=== PATIENT | male | born 1955 | race Caucasian/White ===

== ENCOUNTER 2019-01-23 11:14 | Emergency (ER) | payer BC ==
[2019-01-23] MEDS ORDERED: Sodium Chloride 0.9% 10 ML Syringe FLUSH PRN ×2 (11:23→11:59)
--- NOTE | 2019-01-23 11:35 | EDM.PDOC ---
ED HPI GENERAL MEDICAL PROBLEM - General Stated Complaint: POSSIBLE STROKE Time Seen by Provider: 01/23/19 11:14 Source of Information: Reports: Patient, EMS History Limitations: Reports: No Limitations - History of Present Illness INITIAL COMMENTS - FREE TEXT/NARRATIVE: 63-year-old male who reports that at approximately 9:30 AM today he was sitting and watching TV and he developed right hand and arm weakness. His significant other also noticed that he had garbled speech and the patient does report that he felt it was difficult for him to talk. He reports that the symptoms lasted for about an hour and then they seemed to improve and he felt that they went away. EMS which was a basic unit arrived and they did to FAST screens and they reported to me that they were negative. The patient has had an elevated blood pressure en route but he has been awake, alert and responsive according to EMS. The patient denies any headache. He had no antecedent symptoms. No chest pain. No shortness of breath. Nausea or vomiting. He does admit to drinking beer today ("it's my day off"). He denies any pain at present. He rates his pain as a 0/10. The patient was evaluated and found to have some right sided weakness and right facial droop with slurred speech and was sent directly to CT scan at this point. There are no other associated signs or symptoms. There are no other modifying factors. Onset: Today (9:30 AM) Duration: Improving Location: Reports: Other (No pain. 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 (see below) (Nothing) - Related Data Allergies Allergy/AdvReac Type Severity Reaction Status Date / Time No Known Allergies Allergy Verified 01/23/19 11:42 Home Meds: Home Meds NK [No Known Home Meds] 01/23/19 [History] Past Medical History Cardiovascular History: Reports: Hypertension (But he takes no medications because "I can't afford it".) - Past Surgical History GI Surgical History: Reports: Colonoscopy, Hernia, Inguinal (Right) Musculoskeletal Surgical History: Reports: ORIF (Right elbow) Social & Family History - Tobacco Use Smoking Status *Q: Current Every Day Smoker - Alcohol Use Alcohol Use History: Yes Alcohol Use Frequency: Weekly (Has been drinking alcohol this morning.) - Living Situation & Occupation 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) ED ROS GENERAL - Review of Systems Review Of Systems: See Below Constitutional: Reports: No Symptoms HEENT: Reports: No Symptoms Respiratory: Reports: Cough (Chronic cough) Cardiovascular: Reports: No Symptoms GI/Abdominal: Reports: No Symptoms : Reports: No Symptoms Musculoskeletal: Reports: No Symptoms Skin: Reports: No Symptoms Neurological: Reports: Weakness (Right upper extremity weakness), Change in Speech Hematologic/Lymphatic: Reports: No Symptoms Immunologic: Reports: No Symptoms ED EXAM, NEURO - Physical Exam Exam: See Below Exam Limited By: No Limitations General Appearance: Alert, WD/WN, No Apparent Distress Eye Exam: Bilateral Eye: EOMI, Normal Inspection, PERRL Ears: Normal External Exam, Hearing Loss (Chronic) Nose: Normal Inspection, Normal Mucosa, No Blood Throat/Mouth: Normal Voice, No Airway Compromise, Other (Order of alcohol on his breath) Head Exam: Atraumatic, Normocephalic, Other (He does have a right facial droop) Respiratory/Chest: No Respiratory Distress, Lungs Clear, Normal Breath Sounds, No Accessory Muscle Use, Chest Non-Tender Cardiovascular: Normal Peripheral Pulses, Regular Rate, Rhythm, No JVD, No Murmur GI/Abdominal: Normal Bowel Sounds, Soft, Non-Tender, No Mass Neurological: Alert, Normal Dorsiflexion, Normal Plantar Flexion, Oriented x 3, Other (Right pronator drift. 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 Right facial droop. Normal strength in right lower extremity. Decreased tongue protrusion to the right versus left.) Extremities: Normal Inspection, Normal Range of Motion, Non-Tender, No Pedal Edema, Normal Capillary Refill Skin Exam: Warm, Dry, Intact, Normal Color, No Rash EKG INTERPRETATION EKG Date: 01/23/19 Time: 11:52 Rhythm: NSR Rate (Beats/Min): 94 [place]: LAD-Left [place] Deviation P-Wave: Present QRS: Normal ST-T: Other (Prominent T waves) QT: Normal Comparison: NA - No Prior EKG EKG Interpretation Comments: Normal sinus rhythm with LVH and prominent T waves. There is no acute injury pattern seen. Course - Vital Signs Last Recorded V/S: Last Vital Signs Temp Pulse 94 01/23/19 11:20 Resp 20 01/23/19 11:20 BP Pulse Ox 94 L 01/23/19 11:20 - Orders/Labs/Meds Orders: Active Orders 24 hr Category Date Time Status Blood Glucose Check, Bedside [RC] ONETIME Care 01/23/19 11:39 Active EKG Documentation Completion [RC] ASDIRECTED Care 01/23/19 11:25 Active Chest 1V Frontal [CR] Stat Exams 01/23/19 11:23 Taken Head wo Cont [CT] Stat Exams 01/23/19 11:23 Taken Peripheral IV Insertion Adult [OM.PC] Routine Oth 01/23/19 11:23 Ordered Peripheral IV Insertion Adult [OM.PC] Routine Oth 01/23/19 11:59 Ordered EKG 12 Lead [EK] Routine Ther 01/23/19 11:23 Ordered Labs: Laboratory Tests 01/23/19 01/23/19 01/23/19 Range/Units 11:20 11:20 11:20 WBC 7.7 (4.5-12.0) X10-3/uL RBC 3.92 L (4.30-5.75) x10(6)uL Hgb 12.9 L (13.5-17.8) g/dL Hct 36.2 (30.0-51.3) % MCV 92.3 (80-96) fL MCH 32.9 (27.7-33.6) pg MCHC 35.6 H (32.2-35.4) g/dL RDW 12.3 (11.5-15.5) % Plt Count 142 (125-369) X10(3)uL MPV 7.5 (7.4-10.4) fL Add Manual Diff Yes Neutrophils % (Manual) 84 H (46-82) % Lymphocytes % (Manual) 8 L (13-37) % Monocytes % (Manual) 8 (4-12) % PT 9.9 (8.7-11.1) INR 1.02 (0.89-1.13) APTT 29.2 (24.4-33.2) SECONDS Sodium 127 L (135-145) mmol/L Potassium 2.9 L (3.5-5.3) mmol/L Chloride 90 L (100-110) mmol/L Carbon Dioxide 24 (21-32) mmol/L BUN 7 (7-18) mg/dL Creatinine 0.6 L (0.70-1.30) mg/dL Est Cr Clr Drug Dosing TNP Estimated GFR (MDRD) > 60 (>60) BUN/Creatinine Ratio 11.7 (9-20) Glucose 126 H (80-116) mg/dL Calcium 8.3 L (8.6-10.2) mg/dL Total Bilirubin 0.5 (0.1-1.3) mg/dL AST 39 H (5-25) IU/L ALT 66 H (12-36) U/L Alkaline Phosphatase 111 (56-112) IU/L Total Protein 6.8 (6.0-8.0) g/dL Albumin 3.0 L (3.2-4.6) g/dL Globulin 3.8 g/dL Albumin/Globulin Ratio 0.8 Ethyl Alcohol (<0.03) % 01/23/ Range/Units 11:20 WBC (4.5-12.0) X10-3/uL RBC (4.30-5.75) x10(6)uL Hgb (13.5-17.8) g/dL Hct (30.0-51.3) % MCV (80-96) fL MCH (27.7-33.6) pg MCHC (32.2-35.4) g/dL RDW (11.5-15.5) % Plt Count (125-369) X10(3)uL MPV (7.4-10.4) fL Add Manual Diff Neutrophils % (Manual) (46-82) % Lymphocytes % (Manual) (13-37) % Monocytes % (Manual) (4-12) % PT (8.7-11.1) INR (0.89-1.13) APTT (24.4-33.2) SECONDS Sodium (135-145) mmol/L Potassium (3.5-5.3) mmol/L Chloride (100-110) mmol/L Carbon Dioxide (21-32) mmol/L BUN (7-18) mg/dL Creatinine (0.70-1.30) mg/dL Est Cr Clr Drug Dosing Estimated GFR (MDRD) (>60) BUN/Creatinine Ratio (9-20) Glucose (80-116) mg/dL Calcium (8.6-10.2) mg/dL Total Bilirubin (0.1-1.3) mg/dL AST (5-25) IU/L ALT (12-36) U/L Alkaline Phosphatase (56-112) IU/L Total Protein (6.0-8.0) g/dL Albumin (3.2-4.6) g/dL Globulin g/dL Albumin/Globulin Ratio Ethyl Alcohol 0.05 H (<0.03) % Meds: Medications Discontinued Medications Generic Name Dose Route Start Last Admin Trade Name Freq PRN Reason Stop Dose Admin Alteplase, Recombinant 8.6 mg 01/23/19 12:09 01/23/19 12:16 Activase IV 01/23/19 12:10 8.6 mg .BOLUS ONE Administration Alteplase, Recombinant 77.4 mg 01/23/19 12:09 01/23/19 12:21 Activase IV 01/23/19 12:10 77.4 mg .INFUSION ONE Administration Potassium Chloride 10 meq/ 100 mls @ 100 mls/hr 01/23/19 11:58 01/23/19 12:07 Premix IV 01/23/19 12:57 100 mls/hr ONETIME ONE Administration Sodium Chloride 1,000 mls @ 100 mls/hr 01/23/19 12:00 01/23/19 12:12 Normal Saline IV 100 mls/hr ASDIRECTED NAOMI Administration Sodium Chloride 10 ml 01/23/19 11:23 01/23/19 12:00 Saline Flush FLUSH 10 ml ASDIRECTED PRN Administration Keep Vein Open Sodium Chloride 10 ml 01/23/19 11:59 01/23/19 11:35 Saline Flush FLUSH 10 ml ASDIRECTED PRN Administration Keep Vein Open - Re-Assessments/Exams Free Text/Narrative Re-Assessment/Exam: 01/23/19 11:49: Patient with some right-sided weakness, pronator drift, right sided facial droop, dysarthria and dysphasia and with NIH stroke scale score of 6. The CT scan of his head shows no definite bleed per my read. EKG shows sinus rhythm with a left axis and no evidence of an acute DE. The patient appears to be having an acute ischemic stroke and I will call and discuss the patient's case with the stroke neurologist at [facility] in [place]. 01/23/19 12:00: I discussed the patient's case with Dr. Dash, stroke neurologist at [facility] in [place], and he feels the patient is a candidate for TPA and does recommend TPA therapy for this gentleman. He would also recommend transfer the patient to [facility] in [place] owing this. The official report of the CT scan shows no bleeding per [facility] radiologist. I will discuss the risk and benefits of TPA therapy with the patient. I also discussed the patient's case with Dr. Trotter, ED physician at [facility] in [place], and he has agreed to accept the patient in transfer. 01/23/19 12:05: I discussed the risk and benefits of TPA therapy for stroke with the patient and his significant other. The patient, following this, requests that I proceed with TPA therapy for his stroke. The patient's potassium was also somewhat decreased at 2.9. He will be given a 10 mEq potassium rider IV as well. We will proceed with TPA therapy and then the patient will be transferred via ambulance to [facility] in [place]. 01/23/19 12:25: EMS has been called. The patient remains neurologically stable. TPA is infusing. Potassium chloride is infusing. We will continue close monitoring. Departure - Departure Time of Disposition: 12:51 Disposition: DC/Tfer to Acute Hospital 02 Condition: Critical Clinical Impression: Acute ischemic stroke, Hypokalemia, Hyponatremia - Discharge Information Referrals: PCP,Unknown [Primary Care Provider] - Forms: ED Department Discharge Critical Care Note - Critical Care Note Total Time (mins): 85 Comments: Total critical care time spent with the patient was 85 minutes. - My Orders Last 24 Hours: My Active Orders 01/23/19 11:23 Chest 1V Frontal [CR] Stat Head wo Cont [CT] Stat Peripheral IV Insertion Adult [OM.PC] Routine EKG 12 Lead [EK] Routine 01/23/19 11:25 EKG Documentation Completion [RC] ASDIRECTED 01/23/19 11:39 Blood Glucose Check, Bedside [RC] ONETIME 01/23/19 11:59 Peripheral IV Insertion Adult [OM.PC] Routine - Assessment/Plan Last 24 Hours: My Active Orders 01/23/19 11:23 Chest 1V Frontal [CR] Stat Head wo Cont [CT] Stat Peripheral IV Insertion Adult [OM.PC] Routine EKG 12 Lead [EK] Routine 01/23/19 11:25 EKG Documentation Completion [RC] ASDIRECTED 01/23/19 11:39 Blood Glucose Check, Bedside [RC] ONETIME 01/23/19 11:59 Peripheral IV Insertion Adult [OM.PC] Routine
[2019-01-23] MEDS ORDERED: Potassium Chloride 10 MEQ in Premix Bag 1 BAG IV ONE (11:58)
[2019-01-23] MEDS ORDERED: Sodium Chloride 0.9% 1,000 ML IV SCH (12:00)
== END 2019-01-23 12:51 ==
LOC: FB.ED 11:14
DX: I63.9 Cerebral infarction, unspecified (principal); E87.6 Hypokalemia; E87.1 Hypo-osmolality and hyponatremia; I10 Essential (primary) hypertension
CPT/HCPCS: 36415; 70450; 71045; 80053; 80320; 82962; 85025; 85610; 85730; 93005; 96365; 96368; 96376; 99285; J2997; J3480; J7030; G0480

== ENCOUNTER 2020-10-17 06:44 | Inpatient (IN) | payer MEDICARE, MEDICAID ==
--- NOTE | 2020-10-17 07:33 | EDM.PDOC ---
ED HPI GENERAL MEDICAL PROBLEM - General Chief Complaint: General Stated Complaint: fall/weakness Time Seen by Provider: 10/17/20 07:00 Source of Information: Reports: Patient, Family History Limitations: Reports: No Limitations - History of Present Illness INITIAL COMMENTS - FREE TEXT/NARRATIVE: Patient presented to the ED because of frequent falls and weakness. He started falling 2 weeks ago, the most recent one was 4 days ago. He said his legs just gave out due to his previous stroke and fell on his right side. He has abrasions on the right elbow and complains of right hip pain from the fall this Saturday. He also has a dry cough denies having any dyspnea,fever,chills. There is no N/V/D. He drinks 6 packs of beer daily. DENIES ANY PAIN WHEN ASKED AT PRESENT TIME. Pain Score (Numeric/FACES): 0 - Related Data Allergies Allergy/AdvReac Type Severity Reaction Status Date / Time No Known Allergies Allergy Verified 10/17/20 13:04 Home Meds: Home Meds Cholecalciferol (Vitamin D3) [Vitamin D3] 100 mcg PO DAILY 10/17/20 [History] Cyanocobalamin (Vitamin B12) [Vitamin B12] 1,000 mcg PO DAILY 10/17/20 [History] Folic Acid 1 mg PO DAILY 10/17/20 [History] Losartan [Cozaar] 100 mg PO DAILY 10/17/20 [History] Multivit-Min/FA/Lycopen/Lutein [Centrum Silver Tablet] 1 tab PO DAILY 10/17/20 [History] Sertraline [Zoloft] 100 mg PO DAILY 10/17/20 [History] Triamcinolone Acetonide [Triamcinolone Acetonide 0.1% Crm] 1 applic TOP TID 10/17/20 [History] buPROPion [buPROPion XL] 150 mg PO DAILY 10/17/20 [History] carvediloL [Carvedilol] 12.5 mg PO BID 10/17/20 [History] hydroCHLOROthiazide [Hydrochlorothiazide] 12.5 mg PO DAILY 10/17/20 [History] Past Medical History - Past Health History Medical/Surgical History: Denies Medical/Surgical History Cardiovascular History: Reports: Hypertension Other Cardiovascular History: Has not taken BP med in over 2 years d/t cost of med Genitourinary History: Reports: Urinary Incontinence Neurological History: Reports: CVA Other Neuro History: rt sided affected Psychiatric History: Reports: Depression - Past Surgical History Cardiovascular Surgical History: Reports: None GI Surgical History: Reports: Colonoscopy, Hernia, Inguinal Musculoskeletal Surgical History: Reports: ORIF Social & Family History - Family History Family Medical History: Unobtainable - Tobacco Use Tobacco Use Status *Q: Current Every Day Tobacco User Years of Tobacco use: 45 Packs/Tins Daily: 0.5 - Caffeine Use Caffeine Use: Reports: Soda - Alcohol Use Days Per Week of Alcohol Use: 7 Number of Drinks Per Day: 6 Total Drinks Per Week: 42 - Recreational Drug Use Recreational Drug Use: No - Living Situation & Occupation 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) ED ROS GENERAL - Review of Systems Review Of Systems: See Below Constitutional: Reports: Weakness HEENT: Reports: No Symptoms Respiratory: Reports: Cough Cardiovascular: Reports: No Symptoms Endocrine: Reports: No Symptoms GI/Abdominal: Reports: No Symptoms : Reports: Incontinence Musculoskeletal: Reports: No Symptoms Skin: Reports: Other (abrasions right elbow) Psychiatric: Reports: No Symptoms Hematologic/Lymphatic: Reports: No Symptoms ED EXAM, GENERAL - Physical Exam Exam: See Below Exam Limited By: No Limitations General Appearance: Alert, No Apparent Distress Eye Exam: Bilateral Eye: PERRL Ears: Normal External Exam, Normal Canal, Normal TMs Nose: Normal Inspection, Normal Mucosa, No Blood Throat/Mouth: Normal Inspection, Normal Lips, Normal Teeth Head: Atraumatic, Normocephalic Neck: Normal Inspection, Supple, Non-Tender, Full Range of Motion Respiratory/Chest: No Respiratory Distress, Lungs Clear, Normal Breath Sounds, No Accessory Muscle Use, Chest Non-Tender Cardiovascular: Normal Peripheral Pulses, Regular Rate, Rhythm, No Edema, No Gallop, No JVD, No Murmur GI/Abdominal: Normal Bowel Sounds, Soft, Non-Tender, No Organomegaly, No Distention, No Abnormal Bruit Back Exam: Normal Inspection, Full Range of Motion Extremities: Normal Inspection, Normal Range of Motion, Non-Tender, No Pedal Edema, Normal Capillary Refill Neurological: Alert, Oriented, CN II-XII Intact, Normal Cognition, Normal Reflexes, Other (Rt hemiparesis) Psychiatric: Normal Affect Skin Exam: Warm, Other (abrasion-RT elbow) #1 Interpretation EKG Date: 10/17/20 Time: 07:18 Rhythm: NSR Rate (Beats/Min): 71 [place]: Normal P-Wave: Present QRS: Normal ST-T: Normal QT: Normal [place]/PQ Interval: 232 Comparison: No Change EKG Interpretation Comments: NSR Anterior infarct-old Course - Vital Signs Text/Narrative:: Lab/EKG/Head CT,CXR,Pelvic Xray, Elbow Xray result was discussed with patient and his NS with 20 meq KCL @ 125 ml/hr Last Recorded V/S: Last Vital Signs Temp 37.3 C 10/17/20 11:23 Pulse 73 10/17/20 13:12 Resp 18 10/17/20 11:23 BP 169/94 H 10/17/20 13:12 Pulse Ox 93 L 10/17/20 11:23 - Orders/Labs/Meds Orders: Active Orders 24 hr Category Date Time Status Head wo Cont [CT] Stat Exams 10/17/20 07:01 Taken Sodium Chloride 0.9% [Saline Flush] Med 10/17/20 07:12 Active 10 ml FLUSH ASDIRECTED PRN Saline Lock Insert [OM.PC] Routine Oth 10/17/20 07:12 Ordered EKG 12 Lead [EK] Routine Ther 10/17/20 07:12 Stop Req Medication Orders Albuterol/Ipratropium (Albuterol/Ipratropium 3.0-0.5 Mg/3 Ml Neb Soln) 3 ml NEB Q2H PRN PRN Reason: Shortness of Breath Bupropion HCl (Bupropion 150 Mg Tab.Er) 150 mg PO DAILY NAOMI Last Admin: 10/17/20 13:12 Dose: 150 mg Documented by: MONIQUE Carvedilol (Carvedilol 12.5 Mg Tab) 12.5 mg PO BID NAOMI Last Admin: 10/17/20 13:12 Dose: 12.5 mg Documented by: MONIQUE Hydrochlorothiazide (Hydrochlorothiazide 12.5 Mg Cap) 12.5 mg PO DAILY NAOMI Potassium Chloride/Sodium Chloride (Normal Saline With 20 Meq Kcl) 1,000 mls @ 125 mls/hr IV Q8H NAOMI Last Admin: 10/17/20 12:00 Dose: 125 mls/hr Documented by: ANDEING Lorazepam (Lorazepam 2 Mg/Ml Sdv) 0 mg IV ASDIRECTED NAOMI; Protocol Lorazepam (Lorazepam 1 Mg Tab) 0 mg PO ASDIRECTED NAOMI; Protocol Losartan Potassium (Losartan 100 Mg Tab) 100 mg PO DAILY NAOMI Last Admin: 10/17/20 13:12 Dose: 100 mg Documented by: MONIQUE Multivitamins/Minerals (Multivitamins With Iron/Calcium/Folic Acid/Minerals Tab) 1 tab PO DAILY NAOMI Pantoprazole Sodium (Pantoprazole 40 Mg Tab.Cr) 40 mg PO 0600 NAOMI Sertraline HCl (Sertraline 100 Mg Tab) 100 mg PO DAILY NAOMI Last Admin: 10/17/20 13:12 Dose: 100 mg Documented by: MONIQUE Sodium Chloride (Sodium Chloride 0.9% 10 Ml Syringe) 10 ml FLUSH ASDIRECTED PRN PRN Reason: Keep Vein Open Labs: Laboratory Tests 10/17/20 10/17/20 10/17/20 Range/Units 07:00 07:10 07:10 WBC 8.0 (3.2-10.1) x10-3/uL RBC 3.98 (3.90-5.90) x10(6)uL Hgb 13.1 (12.9-17.7) g/dL Hct 37.8 L (38.3-50.1) % MCV 94.7 (80.8-98.7) fL MCH 32.9 (27.0-33.3) pg MCHC 34.7 (28.7-35.3) g/dL RDW 12.3 L (12.4-15.0) % Plt Count 229 (117-477) x10(3)uL MPV 8.3 (6.7-11.0) fL Neut % (Auto) 78.5 H (40.3-71.8) % Lymph % (Auto) 8.9 L (15.8-45.3) % [place] % (Auto) 11.9 (5.5-15.2) % Eos % (Auto) 0.5 (0.1-6.8) % Baso % (Auto) 0.2 L (0.3-3.8) % Neut # (Auto) 6.3 (1.7-6.9) x10-3/uL Lymph # (Auto) 0.7 (0.5-4.5) x10-3/uL [place] # (Auto) 1.0 (0.0-1.2) x10-3/uL Eos # (Auto) 0.0 (0.0-0.6) x10-3/uL Baso # (Auto) 0.0 (0.0-0.3) x10-3/uL Sodium 124 L (135-145) mmol/L Potassium 3.4 L (3.5-5.3) mmol/L Chloride 88 L* (100-110) mmol/L Carbon Dioxide 25 (21-32) mmol/L BUN 8 (7-18) mg/dL Creatinine 0.7 (0.70-1.30) mg/dL Est Cr Clr Drug Dosing TNP Estimated GFR (MDRD) > 60 (>60) BUN/Creatinine Ratio 11.4 (9-20) Glucose 128 H (80-116) mg/dL Calcium 8.9 (8.6-10.2) mg/dL Magnesium 1.8 (1.8-2.5) mg/dL Total Bilirubin 0.8 (0.1-1.3) mg/dL AST 19 D (5-25) IU/L ALT 29 D (12-36) U/L Alkaline Phosphatase 176 H (56-112) IU/L Creatine Kinase (60-160) IU/L Troponin I (4.0-60.3) pg/mL Total Protein 6.6 (6.0-8.0) g/dL Albumin 3.3 (3.2-4.6) g/dL Globulin 3.3 g/dL Albumin/Globulin Ratio 1.0 Ethyl Alcohol (<0.03) % SARS-CoV-2 RNA (TIMO) (NEGATIVE) 10/17/20 10/17/20 10/17/20 Range/Units 07:10 07:10 07:10 WBC (3.2-10.1) x10-3/uL RBC (3.90-5.90) x10(6)uL Hgb (12.9-17.7) g/dL Hct (38.3-50.1) % MCV (80.8-98.7) fL MCH (27.0-33.3) pg MCHC (28.7-35.3) g/dL RDW (12.4-15.0) % Plt Count (117-477) x10(3)uL MPV (6.7-11.0) fL Neut % (Auto) (40.3-71.8) % Lymph % (Auto) (15.8-45.3) % [place] % (Auto) (5.5-15.2) % Eos % (Auto) (0.1-6.8) % Baso % (Auto) (0.3-3.8) % Neut # (Auto) (1.7-6.9) x10-3/uL Lymph # (Auto) (0.5-4.5) x10-3/uL [place] # (Auto) (0.0-1.2) x10-3/uL Eos # (Auto) (0.0-0.6) x10-3/uL Baso # (Auto) (0.0-0.3) x10-3/uL Sodium (135-145) mmol/L Potassium (3.5-5.3) mmol/L Chloride (100-110) mmol/L Carbon Dioxide (21-32) mmol/L BUN (7-18) mg/dL Creatinine (0.70-1.30) mg/dL Est Cr Clr Drug Dosing Estimated GFR (MDRD) (>60) BUN/Creatinine Ratio (9-20) Glucose (80-116) mg/dL Calcium (8.6-10.2) mg/dL Magnesium (1.8-2.5) mg/dL Total Bilirubin (0.1-1.3) mg/dL AST (5-25) IU/L ALT (12-36) U/L Alkaline Phosphatase (56-112) IU/L Creatine Kinase 78 (60-160) IU/L Troponin I 11.0 (4.0-60.3) pg/mL Total Protein (6.0-8.0) g/dL Albumin (3.2-4.6) g/dL Globulin g/dL Albumin/Globulin Ratio Ethyl Alcohol < 0.03 (<0.03) % SARS-CoV-2 RNA (TIMO) (NEGATIVE) 10/17/20 Range/Units 09:50 WBC (3.2-10.1) x10-3/uL RBC (3.90-5.90) x10(6)uL Hgb (12.9-17.7) g/dL Hct (38.3-50.1) % MCV (80.8-98.7) fL MCH (27.0-33.3) pg MCHC (28.7-35.3) g/dL RDW (12.4-15.0) % Plt Count (117-477) x10(3)uL MPV (6.7-11.0) fL Neut % (Auto) (40.3-71.8) % Lymph % (Auto) (15.8-45.3) % [place] % (Auto) (5.5-15.2) % Eos % (Auto) (0.1-6.8) % Baso % (Auto) (0.3-3.8) % Neut # (Auto) (1.7-6.9) x10-3/uL Lymph # (Auto) (0.5-4.5) x10-3/uL [place] # (Auto) (0.0-1.2) x10-3/uL Eos # (Auto) (0.0-0.6) x10-3/uL Baso # (Auto) (0.0-0.3) x10-3/uL Sodium (135-145) mmol/L Potassium (3.5-5.3) mmol/L Chloride (100-110) mmol/L Carbon Dioxide (21-32) mmol/L BUN (7-18) mg/dL Creatinine (0.70-1.30) mg/dL Est Cr Clr Drug Dosing Estimated GFR (MDRD) (>60) BUN/Creatinine Ratio (9-20) Glucose (80-116) mg/dL Calcium (8.6-10.2) mg/dL Magnesium (1.8-2.5) mg/dL Total Bilirubin (0.1-1.3) mg/dL AST (5-25) IU/L ALT (12-36) U/L Alkaline Phosphatase (56-112) IU/L Creatine Kinase (60-160) IU/L Troponin I (4.0-60.3) pg/mL Total Protein (6.0-8.0) g/dL Albumin (3.2-4.6) g/dL Globulin g/dL Albumin/Globulin Ratio Ethyl Alcohol (<0.03) % SARS-CoV-2 RNA (TIMO) Negative (NEGATIVE) Meds: Medications Generic Name Dose Route Start Last Admin Trade Name Mauricio PRN Reason Stop Dose Admin Albuterol/Ipratropium 3 ml 10/17/20 12:12 Albuterol/Ipratropium 3.0-0.5 Mg/3 Ml Neb Soln NEB Q2H PRN Shortness of Breath Bupropion HCl 150 mg 10/17/20 11:15 10/17/20 13:12 Bupropion 150 Mg Tab.Er PO 150 mg DAILY NAOMI Administration Carvedilol 12.5 mg 10/17/20 11:15 10/17/20 13:12 Carvedilol 12.5 Mg Tab PO 12.5 mg BID NAOMI Administration Hydrochlorothiazide 12.5 mg 10/18/20 09:00 Hydrochlorothiazide 12.5 Mg Cap PO DAILY NAOMI Potassium Chloride/Sodium Chloride 1,000 mls @ 125 mls/hr 10/17/20 11:00 10/17/20 12:00 Normal Saline With 20 Meq Kcl IV 125 mls/hr Q8H NAOMI Administration Lorazepam 0 mg 10/17/20 11:45 Lorazepam 2 Mg/Ml Sdv IV ASDIRECTED NAOMI Protocol Lorazepam 0 mg 10/17/20 12:00 Lorazepam 1 Mg Tab PO ASDIRECTED NAOMI Protocol Losartan Potassium 100 mg 10/17/20 11:15 10/17/20 13:12 Losartan 100 Mg Tab PO 100 mg DAILY NAOMI Administration Multivitamins/Minerals 1 tab 10/18/20 09:00 Multivitamins With Iron/Calcium/Folic Acid/Minerals Tab PO DAILY NAOMI Pantoprazole Sodium 40 mg 10/18/20 06:00 Pantoprazole 40 Mg Tab.Cr PO 0600 NAOMI Sertraline HCl 100 mg 10/17/20 11:15 10/17/20 13:12 Sertraline 100 Mg Tab PO 100 mg DAILY NAOMI Administration Sodium Chloride 10 ml 10/17/20 07:12 Sodium Chloride 0.9% 10 Ml Syringe FLUSH ASDIRECTED PRN Keep Vein Open Discontinued Medications Generic Name Dose Route Start Last Admin Trade Name Mauricio PRN Reason Stop Dose Admin Potassium Chloride/Sodium Chloride 1,000 mls @ 125 mls/hr 10/17/20 10:00 10/17/20 09:58 Normal Saline With 20 Meq Kcl IV 125 mls/hr ASDIRECTED NAOMI Administration Lidocaine HCl 6 ml 10/17/20 11:14 10/17/20 11:36 Lidocaine 2% Hcl 6 Ml [email or web address] 10/17/20 11:15 6 ml ONETIME ONE Administration Departure - Departure Time of Disposition: 09:00 Disposition: Admitted As Inpatient 64 Condition: Good Clinical Impression: Weakness, Urine incontinence, Hypokalemia, Hyponatremia - Discharge Information Sepsis Event Note (ED) - Evaluation Sepsis Screening Result: No Definite Risk - Focused Exam Vital Signs: Vital Signs Temp Pulse Resp BP Pulse Ox 10/17/20 06:52 36.7 C 75 18 167/91 H 94 L - My Orders Last 24 Hours: My Active Orders 10/17/20 07:01 Head wo Cont [CT] Stat 10/17/20 07:12 Sodium Chloride 0.9% [Saline Flush] 10 ml FLUSH ASDIRECTED PRN Saline Lock Insert [OM.PC] Routine EKG 12 Lead [EK] Routine - Assessment/Plan Last 24 Hours: My Active Orders 10/17/20 07:01 Head wo Cont [CT] Stat 10/17/20 07:12 Sodium Chloride 0.9% [Saline Flush] 10 ml FLUSH ASDIRECTED PRN Saline Lock Insert [OM.PC] Routine EKG 12 Lead [EK] Routine
[2020-10-17] MEDS ORDERED: NS + KCl 20mEq/L 1,000 ML IV SCH (10:00)
--- NOTE | 2020-10-17 11:13 | PCM.HP.2 ---
H&P History of Present Illness - General Date of Service: 10/17/20 Admit Problem/Dx: Admission Diagnosis/Problem Admission Diagnosis/Problem Weakness Source of Information: Patient, Family, Old Records, Provider History Limitations: Reports: No Limitations - Related Data Allergies/Adverse Reactions: Allergies Allergy/AdvReac Type Severity Reaction Status Date / Time No Known Allergies Allergy Verified 10/17/20 07:39 Home Medications: Home Meds Cholecalciferol (Vitamin D3) [Vitamin D3] 100 mcg PO DAILY 10/17/20 [History] Cyanocobalamin (Vitamin B12) [Vitamin B12] 1,000 mcg PO DAILY 10/17/20 [History] Folic Acid 1 mg PO DAILY 10/17/20 [History] Losartan [Cozaar] 100 mg PO DAILY 10/17/20 [History] Multivit-Min/FA/Lycopen/Lutein [Centrum Silver Tablet] 1 tab PO DAILY 10/17/20 [History] Sertraline [Zoloft] 100 mg PO DAILY 10/17/20 [History] Triamcinolone Acetonide [Triamcinolone Acetonide 0.1% Crm] 1 applic TOP TID 10/17/20 [History] buPROPion [buPROPion XL] 150 mg PO DAILY 10/17/20 [History] carvediloL [Carvedilol] 25 mg PO DAILY 10/17/20 [History] hydroCHLOROthiazide [Hydrochlorothiazide] 12.5 mg PO DAILY 10/17/20 [History] Past Medical History - Past Health History Medical/Surgical History: Denies Medical/Surgical History Cardiovascular History: Reports: Hypertension Other Cardiovascular History: Has not taken BP med in over 2 years d/t cost of med Genitourinary History: Reports: Urinary Incontinence Neurological History: Reports: CVA Other Neuro History: rt sided affected Psychiatric History: Reports: Depression - Past Surgical History Cardiovascular Surgical History: Reports: None GI Surgical History: Reports: Colonoscopy, Hernia, Inguinal Musculoskeletal Surgical History: Reports: ORIF Social & Family History - Family History Family Medical History: Unobtainable - Tobacco Use Tobacco Use Status *Q: Current Every Day Tobacco User Years of Tobacco use: 45 Packs/Tins Daily: 0.5 - Caffeine Use Caffeine Use: Reports: Soda - Alcohol Use Days Per Week of Alcohol Use: 7 Number of Drinks Per Day: 6 Total Drinks Per Week: 42 - Recreational Drug Use Recreational Drug Use: No - Living Situation & Occupation 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) H&P Review of Systems - Review of Systems: Review Of Systems: See Below General: Reports: Malaise, Weakness, Fatigue HEENT: Reports: No Symptoms Pulmonary: Reports: No Symptoms Cardiovascular: Reports: No Symptoms Gastrointestinal: Reports: No Symptoms Genitourinary: Reports: Dysuria Musculoskeletal: Reports: Arm Pain Skin: Reports: Bruising, Wound Neurological: Reports: Confusion Hematologic/Lymphatic: Reports: No Symptoms Immunologic: Reports: No Symptoms Exam - Exam Exam: See Below - Vital Signs Vital Signs: Last Vital Signs Temp 36.7 C 10/17/20 06:52 Pulse 75 10/17/20 06:52 Resp 18 10/17/20 06:52 BP 167/91 H 10/17/20 06:52 Pulse Ox 94 L 10/17/20 06:52 Weight: 77.111 kg - Exam Quality Assessment: Supplemental Oxygen, DVT Prophylaxis General: Alert, Mild Distress Lungs: Decreased Breath Sounds Cardiovascular: Systolic Murmur, Other (Heart sounds are distant and difficult to auscultate) GI/Abdominal Exam: Normal Bowel Sounds, Non-Tender Extremities: Pedal Edema, Other (1+ pitting edema left lower extremity, trace pitting edema right lower extremity) Peripheral Pulses: 1+: Popliteal (R), Posterior Tibial (L), 2+: Radial (L), Radial (R) Skin: Ecchymosis, Wound Neurological: Abnormal Gait. No: Strength Equal Bilateral Neuro Extensive - Mental Status: Alert, Disorientation to Time - Patient Data Lab Results Last 24 hrs: Laboratory Results - last 24 hr 10/17/20 10/17/20 10/17/20 Range/Units 07:10 07:10 07:10 WBC 8.0 (3.2-10.1) x10-3/uL RBC 3.98 (3.90-5.90) x10(6)uL Hgb 13.1 (12.9-17.7) g/dL Hct 37.8 L (38.3-50.1) % MCV 94.7 (80.8-98.7) fL MCH 32.9 (27.0-33.3) pg MCHC 34.7 (28.7-35.3) g/dL RDW 12.3 L (12.4-15.0) % Plt Count 229 (117-477) x10(3)uL MPV 8.3 (6.7-11.0) fL Neut % (Auto) 78.5 H (40.3-71.8) % Lymph % (Auto) 8.9 L (15.8-45.3) % [place] % (Auto) 11.9 (5.5-15.2) % Eos % (Auto) 0.5 (0.1-6.8) % Baso % (Auto) 0.2 L (0.3-3.8) % Neut # (Auto) 6.3 (1.7-6.9) x10-3/uL Lymph # (Auto) 0.7 (0.5-4.5) x10-3/uL [place] # (Auto) 1.0 (0.0-1.2) x10-3/uL Eos # (Auto) 0.0 (0.0-0.6) x10-3/uL Baso # (Auto) 0.0 (0.0-0.3) x10-3/uL Sodium 124 L (135-145) mmol/L Potassium 3.4 L (3.5-5.3) mmol/L Chloride 88 L* (100-110) mmol/L Carbon Dioxide 25 (21-32) mmol/L BUN 8 (7-18) mg/dL Creatinine 0.7 (0.70-1.30) mg/dL Est Cr Clr Drug Dosing TNP Estimated GFR (MDRD) > 60 (>60) BUN/Creatinine Ratio 11.4 (9-20) Glucose 128 H (80-116) mg/dL Calcium 8.9 (8.6-10.2) mg/dL Total Bilirubin 0.8 (0.1-1.3) mg/dL AST 19 D (5-25) IU/L ALT 29 D (12-36) U/L Alkaline Phosphatase 176 H (56-112) IU/L Creatine Kinase (60-160) IU/L Troponin I 11.0 (4.0-60.3) pg/mL Total Protein 6.6 (6.0-8.0) g/dL Albumin 3.3 (3.2-4.6) g/dL Globulin 3.3 g/dL Albumin/Globulin Ratio 1.0 Ethyl Alcohol (<0.03) % SARS-CoV-2 RNA (TIMO) (NEGATIVE) 10/17/20 10/17/20 10/17/20 Range/Units 07:10 07:10 09:50 WBC (3.2-10.1) x10-3/uL RBC (3.90-5.90) x10(6)uL Hgb (12.9-17.7) g/dL Hct (38.3-50.1) % MCV (80.8-98.7) fL MCH (27.0-33.3) pg MCHC (28.7-35.3) g/dL RDW (12.4-15.0) % Plt Count (117-477) x10(3)uL MPV (6.7-11.0) fL Neut % (Auto) (40.3-71.8) % Lymph % (Auto) (15.8-45.3) % [place] % (Auto) (5.5-15.2) % Eos % (Auto) (0.1-6.8) % Baso % (Auto) (0.3-3.8) % Neut # (Auto) (1.7-6.9) x10-3/uL Lymph # (Auto) (0.5-4.5) x10-3/uL [place] # (Auto) (0.0-1.2) x10-3/uL Eos # (Auto) (0.0-0.6) x10-3/uL Baso # (Auto) (0.0-0.3) x10-3/uL Sodium (135-145) mmol/L Potassium (3.5-5.3) mmol/L Chloride (100-110) mmol/L Carbon Dioxide (21-32) mmol/L BUN (7-18) mg/dL Creatinine (0.70-1.30) mg/dL Est Cr Clr Drug Dosing Estimated GFR (MDRD) (>60) BUN/Creatinine Ratio (9-20) Glucose (80-116) mg/dL Calcium (8.6-10.2) mg/dL Total Bilirubin (0.1-1.3) mg/dL AST (5-25) IU/L ALT (12-36) U/L Alkaline Phosphatase (56-112) IU/L Creatine Kinase 78 (60-160) IU/L Troponin I (4.0-60.3) pg/mL Total Protein (6.0-8.0) g/dL Albumin (3.2-4.6) g/dL Globulin g/dL Albumin/Globulin Ratio Ethyl Alcohol < 0.03 (<0.03) % SARS-CoV-2 RNA (TIMO) Negative (NEGATIVE) Result Diagrams: 10/17/20 07:10 10/17/20 07:10 Sepsis Event Note - Evaluation Sepsis Screening Result: No Definite Risk - Focused Exam Vital Signs: Vital Signs Temp Pulse Resp BP Pulse Ox 10/17/20 06:52 36.7 C 75 18 167/91 H 94 L - Problem List (1) History of stroke SNOMED Code(s): 174117523 ICD Code: Z86.73 - PRSNL HX OF TIA (TIA), AND CEREB INFRC W/O RESID DEFICITS Status: Chronic Current Visit: Yes (2) Hypokalemia SNOMED Code(s): 30054165 ICD Code: E87.6 - HYPOKALEMIA Status: Acute Current Visit: No (3) Essential hypertension SNOMED Code(s): 49904868 ICD Code: I10 - ESSENTIAL (PRIMARY) HYPERTENSION Status: Chronic Current Visit: Yes (4) History of endocarditis SNOMED Code(s): 786674196 ICD Code: Z86.79 - PERSONAL HISTORY OF OTHER DISEASES OF THE CIRCULATORY SYSTEM Status: Chronic Current Visit: Yes (5) Valvular heart disease Status: Chronic Current Visit: Yes (6) COPD (chronic obstructive pulmonary disease) SNOMED Code(s): 22105721 ICD Code: J44.9 - CHRONIC OBSTRUCTIVE PULMONARY DISEASE, UNSPECIFIED St atus: Chronic Current Visit: Yes (7) Alcoholism SNOMED Code(s): 0610927 ICD Code: F10.20 - ALCOHOL DEPENDENCE, UNCOMPLICATED Status: Acute Current Visit: Yes (8) GERD (gastroesophageal reflux disease) SNOMED Code(s): 242740037 ICD Code: K21.9 - GASTRO-ESOPHAGEAL REFLUX DISEASE WITHOUT ESOPHAGITIS Status: Chronic Current Visit: Yes (9) Transaminitis SNOMED Code(s): 050383360, 561136781 ICD Code: R74.01 - ELEVATION OF LEVELS OF LIVER TRANSAMINASE LEVELS Status: Acute Current Visit: Yes (10) Palliative care encounter SNOMED Code(s): 197516337, 514393374 ICD Code: Z51.5 - ENCOUNTER FOR PALLIATIVE CARE Status: Acute Current Visit: Yes Problem List Initiated/Reviewed/Updated: Yes Orders Last 24hrs: Active Orders 24 hr Category Date Time Status Patient Status Manage Transfer [TRANSFER] Routine ADT 10/17/20 09:55 Active Patient Status [ADT] Routine ADT 10/17/20 10:56 Active Antiembolic Devices [RC] .Routine Care 10/17/20 10:57 Active CIWAA Assessment [RC] Q4H Care 10/17/20 11:05 Active EKG Documentation Completion [RC] ASDIRECTED Care 10/17/20 07:12 Active Pulse Oximetry [RC] PRN Care 10/17/20 10:56 Active Up With Assistance [RC] ASDIRECTED Care 10/17/20 10:55 Active VTE/DVT Education [RC] Click to Edit Care 10/17/20 10:57 Active Vital Signs [RC] Q4H Care 10/17/20 10:56 Active OT Evaluation and Treatment [CONS] Routine Cons 10/17/20 11:08 Active PT Evaluation and Treatment [CONS] Routine Cons 10/17/20 11:06 Active Heart Healthy Diet [DIET] Diet 10/17/20 Lunch Active CXR [Chest 1V Frontal] [CR] Stat Exams 10/17/20 07:14 Taken Elbow Min 3V Rt [CR] Stat Exams 10/17/20 07:11 Taken Head wo Cont [CT] Stat Exams 10/17/20 07:01 Taken Hip Min 2V w Pelvis Bi [CR] Stat Exams 10/17/20 07:01 Taken Losartan [Cozaar] Med 10/17/20 11:15 Ordered 100 mg PO DAILY Multivit-Min/FA/Lycopen/Lutein [Centrum Silver Tablet] Med 10/18/20 09:00 Ordered 1 tab PO DAILY NS + KCl 20mEq/L [Normal Saline with 20 mEq KCl] 1,000 Med 10/17/20 11:00 Active ml IV Q8H Sertraline [Zoloft] Med 10/17/20 11:15 Ordered 100 mg PO DAILY Sodium Chloride 0.9% [Saline Flush] Med 10/17/20 07:12 Active 10 ml FLUSH ASDIRECTED PRN buPROPion [Wellbutrin XL] Med 10/17/20 11:15 Ordered 150 mg PO DAILY carvediloL [Coreg] Med 10/17/20 11:15 Ordered 25 mg PO DAILY hydroCHLOROthiazide [Hydrochlorothiazide] Med 10/18/20 09:00 Ordered 12.5 mg PO DAILY DVT/VTE Prophylaxis Reflex [OM.PC] Per Unit Routine Oth 10/17/20 10:56 Ordered Saline Lock Insert [OM.PC] Routine Oth 10/17/20 07:12 Ordered Resuscitation Status Routine Resus Stat 10/17/20 10:55 Ordered EKG 12 Lead [EK] Routine Ther 10/17/20 07:12 Ordered Medication Orders Bupropion HCl (Bupropion 150 Mg Tab.Er) 150 mg PO DAILY NAOMI Carvedilol (Carvedilol 12.5 Mg Tab) 25 mg PO DAILY NAOMI Potassium Chloride/Sodium Chloride (Normal Saline With 20 Meq Kcl) 1,000 mls @ 125 mls/hr IV Q8H NAOMI Losartan Potassium (Losartan 100 Mg Tab) 100 mg PO DAILY NAOMI Non-Formulary Medication (Hydrochlorothiazide [Hydrochlorothiazide]) 12.5 mg PO DAILY NAOMI Non-Formulary Medication (Multivit-Min/Fa/Lycopen/Lutein [Centrum Silver Ta blet]) 1 tab PO DAILY NAOMI Sertraline HCl (Sertraline 100 Mg Tab) 100 mg PO DAILY NAOMI Sodium Chloride (Sodium Chloride 0.9% 10 Ml Syringe) 10 ml FLUSH ASDIRECTED PRN PRN Reason: Keep Vein Open Assessment/Plan Comment:: 1. Patient will be admitted to inpatient care. Restart home medications for chronic conditions. 2. CIWA with CIWA protocol for possible/likely alcohol withdrawal 3. Monitor and replete electrolytes as necessary 4. OT/PT evaluation 5. Further recommendations based on test results and patient progress 6. DVT prophylaxis: Patient has a history of endocarditis. Echocardiogram performed 08/08/2020 showed no significant aortic stenosis but did show moderate to severe mitral regurgitation. Patient has a systolic murmur that radiates to the right sternal border. Will use SCDs and frequent ambulation for DVT control due to history of endocarditis. 7. GI prophylaxis: ProtonixPPI, heart healthy diet 8. Disposition: Patient was brought to the hospital by his partner due to inability to complete activities of daily living. Patient will be evaluated by PT/OT for possible rehabilitation stay. Length of stay likely 3 or more days based on treatment response and PT/OT recommendations.
[2020-10-17] MEDS ORDERED: Lidocaine 2% HCl 6 ML JEL.PF.APP ONE (11:14)
[2020-10-17] MEDS ORDERED: LORazepam 2 MG/ML SDV IV SCH (11:45)
[2020-10-17] MEDS ORDERED: LORazepam 1 MG Tab PO SCH (12:00)
[2020-10-17] MEDS: NS + KCl 20mEq/L 1,000 ML IV SCH ×2 (12:00→18:09)
[2020-10-17] MEDS ORDERED: Albuterol/Ipratropium 3.0-0.5 MG/3 ML Neb Soln NEB PRN (12:12)
[2020-10-17] MEDS: Sertraline 100 MG Tab PO SCH (13:12)
[2020-10-17] MEDS: Carvedilol 12.5 MG Tab PO SCH ×2 (13:12→20:16)
[2020-10-17] MEDS: buPROPion 150 MG Tab.ER PO SCH (13:12)
[2020-10-17] MEDS: Losartan 100 MG Tab PO SCH (13:12)
--- NOTE | 2020-10-17 15:40 | CR ---
INDICATION: Cough. Patient could not cooperate with the examination. CHEST ONE VIEW: An AP upright view of the chest was obtained 10/17/20 and compared with 01/23/19. There was rotation of the chest to the left. It is difficult to exclude patchy bronchopneumonia at the lung bases with very poor inspiration present especially at the right lung base. However, a gross consolidating pneumonia or large pleural effusion is not identified with suggestion of a minimal pleural effusion on the right due to blunting of the costophrenic angle there. Heart size does not appear grossly enlarged allowing for the poor inspiration and rotation. The aorta is somewhat tortuous. IMPRESSION: Cannot exclude pneumonia and pleuritis at the right lung base, minimal patchy pneumonia at the left lung base. The study is limited however, full inspiration PA and lateral views of the chest may be helpful for further evaluation when clinically possible. MTDD
--- NOTE | 2020-10-17 15:43 | CR ---
INDICATION: Fall, right elbow injury. RIGHT ELBOW: Three views of the right elbow were obtained 10/17/20 - no comparison. There is evidence of a previous ORIF with plate and multiple screws fixing apparent fracture fragments of the olecranon process and proximal ulnar shaft with no sign of an acute fracture or dislocation identified. Somewhat demineralized appearance is noted which may be on the basis of osteomalacia or osteoporosis, and should be correlated clinically. No definite joint effusion was seen. The plate and screws of the ORIF appear intact. MTDD
--- NOTE | 2020-10-17 15:47 | CR ---
INDICATION: Fall. Hip pain. BILATERAL HIPS WITH PELVIS: An AP view of the pelvis with AP and lateral views of both hips were obtained 10/17/20 - no comparisons. No significant hypertrophic degenerative changes were noted. An acute fracture or dislocation was not seen. Sacroiliac joints were intact. Somewhat diminished bone density may be present. There is a large sclerotic area of increased density in the head of the left femur extending into the neck area. This could be on the basis of infarct but should be correlated clinically. If an active lesion is suspected clinically, nuclear bone imaging or possibly MRI, may be helpful for further evaluation. MTDD
[2020-10-17] MEDS ORDERED: cefTRIAXone 1 GM in Sodium Chloride 0.9% 50 ML IV SCH (18:00)
[2020-10-17] MEDS: Azithromycin 500 MG Tab PO SCH (18:15)
[2020-10-18] MEDS: NS + KCl 20mEq/L 1,000 ML IV SCH (02:01)
[2020-10-18] MEDS: Pantoprazole 40 MG Tab.CR PO SCH (06:15)
--- NOTE | 2020-10-18 08:35 | PCM.PN ---
- General Info Date of Service: 10/18/20 Admission Dx/Problem (Free Text): Admission Diagnosis/Problem Admission Diagnosis/Problem Weakness Subjective Update: Patient reports no change in his status Functional Status: Reports: New Symptoms - Review of Systems General: Reports: Weakness, Fatigue, Malaise HEENT: Reports: No Symptoms Pulmonary: Reports: No Symptoms Cardiovascular: Reports: No Symptoms Gastrointestinal: Reports: No Symptoms Genitourinary: Reports: Incontinence Musculoskeletal: Reports: Arm Pain, Hand Pain, Leg Pain Skin: Reports: Bruising Neurological: Reports: Pre-Existing Deficit Psychiatric: Reports: Confusion - Patient Data Vitals - Most Recent: Last Vital Signs Temp 36.9 C 10/18/20 04:00 Pulse 69 10/18/20 04:00 Resp 18 10/18/20 04:00 BP 156/83 H 10/18/20 04:00 Pulse Ox 92 L 10/18/20 04:00 Weight - Most Recent: 80.428 kg I&O - Last 24 Hours: Intake & Output 10/17/20 10/18/20 10/18/20 22:59 06:59 14:59 Intake Total 1209 1164 Balance 1209 1164 Lab Results Last 24 Hours: Laboratory Results - last 24 hr 10/17/20 10/17/20 10/18/20 Range/Units 07:00 09:50 06:15 WBC 8.5 (3.2-10.1) x10-3/uL RBC 3.87 L (3.90-5.90) x10(6)uL Hgb 12.7 L (12.9-17.7) g/dL Hct 37.4 L (38.3-50.1) % MCV 96.5 (80.8-98.7) fL MCH 32.9 (27.0-33.3) pg MCHC 34.1 (28.7-35.3) g/dL RDW 12.4 (12.4-15.0) % Plt Count 221 (117-477) x10(3)uL MPV 8.5 (6.7-11.0) fL Neut % (Auto) 80.6 H (40.3-71.8) % Lymph % (Auto) 7.4 L (15.8-45.3) % [place] % (Auto) 11.3 (5.5-15.2) % Eos % (Auto) 0.3 (0.1-6.8) % Baso % (Auto) 0.4 (0.3-3.8) % Neut # (Auto) 6.8 (1.7-6.9) x10-3/uL Lymph # (Auto) 0.6 (0.5-4.5) x10-3/uL [place] # (Auto) 1.0 (0.0-1.2) x10-3/uL Eos # (Auto) 0.0 (0.0-0.6) x10-3/uL Baso # (Auto) 0.0 (0.0-0.3) x10-3/uL Sodium (135-145) mmol/L Potassium (3.5-5.3) mmol/L Chloride (100-110) mmol/L Carbon Dioxide (21-32) mmol/L BUN (7-18) mg/dL Creatinine (0.70-1.30) mg/dL Est Cr Clr Drug Dosing mL/min Estimated GFR (MDRD) (>60) BUN/Creatinine Ratio (9-20) Glucose (80-116) mg/dL Calcium (8.6-10.2) mg/dL Magnesium 1.8 (1.8-2.5) mg/dL Total Bilirubin (0.1-1.3) mg/dL AST (5-25) IU/L ALT (12-36) U/L Alkaline Phosphatase (56-112) IU/L Total Protein (6.0-8.0) g/dL Albumin (3.2-4.6) g/dL Globulin g/dL Albumin/Globulin Ratio SARS-CoV-2 RNA (TIMO) Negative (NEGATIVE) 10/18/20 Range/Units 06:15 WBC (3.2-10.1) x10-3/uL RBC (3.90-5.90) x10(6)uL Hgb (12.9-17.7) g/dL Hct (38.3-50.1) % MCV (80.8-98.7) fL MCH (27.0-33.3) pg MCHC (28.7-35.3) g/dL RDW (12.4-15.0) % Plt Count (117-477) x10(3)uL MPV (6.7-11.0) fL Neut % (Auto) (40.3-71.8) % Lymph % (Auto) (15.8-45.3) % [place] % (Auto) (5.5-15.2) % Eos % (Auto) (0.1-6.8) % Baso % (Auto) (0.3-3.8) % Neut # (Auto) (1.7-6.9) x10-3/uL Lymph # (Auto) (0.5-4.5) x10-3/uL [place] # (Auto) (0.0-1.2) x10-3/uL Eos # (Auto) (0.0-0.6) x10-3/uL Baso # (Auto) (0.0-0.3) x10-3/uL Sodium 133 L (135-145) mmol/L Potassium 3.9 (3.5-5.3) mmol/L Chloride 98 L D (100-110) mmol/L Carbon Dioxide 27 (21-32) mmol/L BUN 7 (7-18) mg/dL Creatinine 0.8 (0.70-1.30) mg/dL Est Cr Clr Drug Dosing 101.26 mL/min Estimated GFR (MDRD) > 60 (>60) BUN/Creatinine Ratio 8.8 L (9-20) Glucose 115 (80-116) mg/dL Calcium 8.5 L (8.6-10.2) mg/dL Magnesium (1.8-2.5) mg/dL Total Bilirubin 0.7 (0.1-1.3) mg/dL AST 16 D (5-25) IU/L ALT 25 D (12-36) U/L Alkaline Phosphatase 151 H (56-112) IU/L Total Protein 6.1 (6.0-8.0) g/dL Albumin 2.9 L (3.2-4.6) g/dL Globulin 3.2 g/dL Albumin/Globulin Ratio 0.9 SARS-CoV-2 RNA (TIMO) (NEGATIVE) Med Orders - Current: Current Medications Albuterol/Ipratropium (Albuterol/Ipratropium 3.0-0.5 Mg/3 Ml Neb Soln) 3 ml NEB Q2H PRN PRN Reason: Shortness of Breath Azithromycin (Azithromycin 500 Mg Tab) 500 mg PO Q24H [facility] Stop: 10/19/20 23:59 Last Admin: 10/17/20 18:15 Dose: 500 mg Documented by: Bupropion HCl (Bupropion 150 Mg Tab.Er) 150 mg PO DAILY [facility] Last Admin: 10/17/20 13:12 Dose: 150 mg Documented by: Carvedilol (Carvedilol 12.5 Mg Tab) 12.5 mg PO BID [facility] Last Admin: 10/17/20 20:16 Dose: 12.5 mg Documented by: Ceftriaxone Sodium (Ceftriaxone 1 Gm Vial) 1 gm IVPUSH Q24H [facility] Hydrochlorothiazide (Hydrochlorothiazide 12.5 Mg Cap) 12.5 mg PO DAILY [facility] Lorazepam (Lorazepam 2 Mg/Ml Sdv) 0 mg IV ASDIRECTED [facility]; Protocol Lorazepam (Lorazepam 1 Mg Tab) 0 mg PO ASDIRECTED [facility]; Protocol Losartan Potassium (Losartan 100 Mg Tab) 100 mg PO DAILY [facility] Last Admin: 10/17/20 13:12 Dose: 100 mg Documented by: Multivit/Ca Carb/B Cmplx/FA/Prenat (Folic Acid/Vitamin B Complex With C Cap) 1 cap PO DAILY [facility] Multivitamins/Minerals (Multivitamins With Iron/Calcium/Folic Acid/Minerals Tab) 1 tab PO DAILY [facility] Pantoprazole Sodium (Pantoprazole 40 Mg Tab.Cr) 40 mg PO 0600 [facility] Last Admin: 10/18/20 06:15 Dose: 40 mg Documented by: Sertraline HCl (Sertraline 100 Mg Tab) 100 mg PO DAILY [facility] Last Admin: 10/17/20 13:12 Dose: 100 mg Documented by: Sodium Chloride (Sodium Chloride 0.9% 10 Ml Syringe) 10 ml FLUSH ASDIRECTED PRN PRN Reason: Keep Vein Open Thiamine HCl (Thiamine 100 Mg Tab) 100 mg PO BEDTIME [facility] Discontinued Medications Potassium Chloride/Sodium Chloride (Normal Saline With 20 Meq Kcl) 1,000 mls @ 125 mls/hr IV ASDIRECTED [facility] Last Admin: 10/17/20 09:58 Dose: 125 mls/hr Documented by: Potassium Chloride/Sodium Chloride (Normal Saline With 20 Meq Kcl) 1,000 mls @ 125 mls/hr IV Q8H [facility] Last Admin: 10/18/20 02:01 Dose: 125 mls/hr Documented by: Ceftriaxone Sodium 1 gm/ (Sodium Chloride) 50 mls @ 200 mls/hr IV Q24H [facility] Last Admin: 10/17/20 18:15 Dose: 200 mls/hr Documented by: Lidocaine HCl (Lidocaine 2% Hcl 6 Ml Jel.Pf.Juanjo) 6 ml .XX ONETIME ONE Stop: 10/17/20 11:15 Last Admin: 10/17/20 11:36 Dose: 6 ml Documented by: Comments:: Patient was resting in bed but he was awake. He was able to get up and sit up on the side of the bed with minimal help. He is slightly confused but is oriented to person and place - Exam Quality Assessment: Supplemental Oxygen, DVT Prophylaxis General: Alert, Cooperative Lungs: Decreased Breath Sounds, Crackles, Rales Cardiovascular: Regular Rate, Regular Rhythm, Murmurs GI/Abdominal Exam: Normal Bowel Sounds Extremities: Pedal Edema Peripheral Pulses: 1+: Dorsalis Pedis (L), Dorsalis Pedis (R), 2+: Radial (L), Radial (R) Skin: Ecchymosis Wound/Incisions: Healing Well Neurological: No New Focal Deficit Psy/Mental Status: Alert, Depressed - Patient Data Lab Results Last 24 hrs: Laboratory Results - last 24 hr 10/17/20 10/17/20 10/18/20 Range/Units 07:00 09:50 06:15 WBC 8.5 (3.2-10.1) x10-3/uL RBC 3.87 L (3.90-5.90) x10(6)uL Hgb 12.7 L (12.9-17.7) g/dL Hct 37.4 L (38.3-50.1) % MCV 96.5 (80.8-98.7) fL MCH 32.9 (27.0-33.3) pg MCHC 34.1 (28.7-35.3) g/dL RDW 12.4 (12.4-15.0) % Plt Count 221 (117-477) x10(3)uL MPV 8.5 (6.7-11.0) fL Neut % (Auto) 80.6 H (40.3-71.8) % Lymph % (Auto) 7.4 L (15.8-45.3) % [place] % (Auto) 11.3 (5.5-15.2) % Eos % (Auto) 0.3 (0.1-6.8) % Baso % (Auto) 0.4 (0.3-3.8) % Neut # (Auto) 6.8 (1.7-6.9) x10-3/uL Lymph # (Auto) 0.6 (0.5-4.5) x10-3/uL [place] # (Auto) 1.0 (0.0-1.2) x10-3/uL Eos # (Auto) 0.0 (0.0-0.6) x10-3/uL Baso # (Auto) 0.0 (0.0-0.3) x10-3/uL Sodium (135-145) mmol/L Potassium (3.5-5.3) mmol/L Chloride (100-110) mmol/L Carbon Dioxide (21-32) mmol/L BUN (7-18) mg/dL Creatinine (0.70-1.30) mg/dL Est Cr Clr Drug Dosing mL/min Estimated GFR (MDRD) (>60) BUN/Creatinine Ratio (9-20) Glucose (80-116) mg/dL Calcium (8.6-10.2) mg/dL Magnesium 1.8 (1.8-2.5) mg/dL Total Bilirubin (0.1-1.3) mg/dL AST (5-25) IU/L ALT (12-36) U/L Alkaline Phosphatase (56-112) IU/L Total Protein (6.0-8.0) g/dL Albumin (3.2-4.6) g/dL Globulin g/dL Albumin/Globulin Ratio SARS-CoV-2 RNA (TIMO) Negative (NEGATIVE) 10/18/20 Range/Units 06:15 WBC (3.2-10.1) x10-3/uL RBC (3.90-5.90) x10(6)uL Hgb (12.9-17.7) g/dL Hct (38.3-50.1) % MCV (80.8-98.7) fL MCH (27.0-33.3) pg MCHC (28.7-35.3) g/dL RDW (12.4-15.0) % Plt Count (117-477) x10(3)uL MPV (6.7-11.0) fL Neut % (Auto) (40.3-71.8) % Lymph % (Auto) (15.8-45.3) % [place] % (Auto) (5.5-15.2) % Eos % (Auto) (0.1-6.8) % Baso % (Auto) (0.3-3.8) % Neut # (Auto) (1.7-6.9) x10-3/uL Lymph # (Auto) (0.5-4.5) x10-3/uL [place] # (Auto) (0.0-1.2) x10-3/uL Eos # (Auto) (0.0-0.6) x10-3/uL Baso # (Auto) (0.0-0.3) x10-3/uL Sodium 133 L (135-145) mmol/L Potassium 3.9 (3.5-5.3) mmol/L Chloride 98 L D (100-110) mmol/L Carbon Dioxide 27 (21-32) mmol/L BUN 7 (7-18) mg/dL Creatinine 0.8 (0.70-1.30) mg/dL Est Cr Clr Drug Dosing 101.26 mL/min Estimated GFR (MDRD) > 60 (>60) BUN/Creatinine Ratio 8.8 L (9-20) Glucose 115 (80-116) mg/dL Calcium 8.5 L (8.6-10.2) mg/dL Magnesium (1.8-2.5) mg/dL Total Bilirubin 0.7 (0.1-1.3) mg/dL AST 16 D (5-25) IU/L ALT 25 D (12-36) U/L Alkaline Phosphatase 151 H (56-112) IU/L Total Protein 6.1 (6.0-8.0) g/dL Albumin 2.9 L (3.2-4.6) g/dL Globulin 3.2 g/dL Albumin/Globulin Ratio 0.9 SARS-CoV-2 RNA (TIMO) (NEGATIVE) Result Diagrams: 10/18/20 06:15 10/18/20 06:15 Sepsis Event Note - Evaluation Sepsis Screening Result: No Definite Risk - Focused Exam Vital Signs: Vital Signs Temp Pulse Resp BP Pulse Ox 10/18/20 04:00 36.9 C 69 18 156/83 H 92 L 10/18/20 00:00 36.8 C 71 20 152/78 H 90 L - Problem List & Annotations (1) History of stroke SNOMED Code(s): 254487849 Code(s): Z86.73 - PRSNL HX OF TIA (TIA), AND CEREB INFRC W/O RESID DEFICITS Status: Chronic Current Visit: Yes (2) Hypokalemia SNOMED Code(s): 73593122 Code(s): E87.6 - HYPOKALEMIA Status: Resolved Current Visit: Yes (3) Essential hypertension SNOMED Code(s): 00395327 Code(s): I10 - ESSENTIAL (PRIMARY) HYPERTENSION Status: Chronic Current Visit: Yes (4) History of endocarditis SNOMED Code(s): 988008796 Code(s): Z86.79 - PERSONAL HISTORY OF OTHER DISEASES OF THE CIRCULATORY SYSTEM Status: Chronic Current Visit: Yes (5) Valvular heart disease Status: Chronic Current Visit: Yes (6) COPD (chronic obstructive pulmonary disease) SNOMED Code(s): 30210812 Code(s): J44.9 - CHRONIC OBSTRUCTIVE PULMONARY DISEASE, UNSPECIFIED Status: Chronic Current Visit: Yes (7) Alcoholism SNOMED Code(s): 8763357 Code(s): F10.20 - ALCOHOL DEPENDENCE, UNCOMPLICATED Status: Acute Current Visit: Yes (8) GERD (gastroesophageal reflux disease) SNOMED Code(s): 674772176 Code(s): K21.9 - GASTRO-ESOPHAGEAL REFLUX DISEASE WITHOUT ESOPHAGITIS Status: Chronic Current Visit: Yes (9) Palliative care encounter SNOMED Code(s): 871102262, 779220384 Code(s): Z51.5 - ENCOUNTER FOR PALLIATIVE CARE Status: Acute Current Vis it: Yes (10) Hyponatremia SNOMED Code(s): 28584835 Code(s): E87.1 - HYPO-OSMOLALITY AND HYPONATREMIA Status: Acute Current Visit: Yes (11) Right hemiparesis SNOMED Code(s): 870053092 Code(s): G81.91 - HEMIPLEGIA, UNSPECIFIED AFFECTING RIGHT DOMINANT SIDE Status: Chronic Current Visit: Yes (12) Malnutrition compromising bodily function SNOMED Code(s): 1076598 Code(s): E46 - UNSPECIFIED PROTEIN-CALORIE MALNUTRITION Status: Acute Current Visit: Yes (13) Hypoalbuminemia SNOMED Code(s): 367769303 Code(s): E88.09 - OTH DISORDERS OF PLASMA-PROTEIN METABOLISM, NEC Status: Acute Current Visit: Yes (14) Lower extremity edema SNOMED Code(s): 397015764 Code(s): R60.0 - LOCALIZED EDEMA Status: Acute Current Visit: Yes - Problem List Review Problem List Initiated/Reviewed/Updated: Yes - My Orders Last 24 Hours: My Active Orders 10/17/20 Lunch Heart Healthy Diet [DIET] 10/17/20 10:55 Up With Assistance [RC] ASDIRECTED Resuscitation Status Routine 10/17/20 10:56 Pulse Oximetry [RC] PRN Vital Signs [RC] 00,04,08,12,16,20 DVT/VTE Prophylaxis Reflex [OM.PC] Per Unit Routine 10/17/20 10:57 Antiembolic Devices [RC] .Routine VTE/DVT Education [RC] Click to Edit 10/17/20 11:05 CIWAA Assessment [RC] Q4H 10/17/20 11:14 OT Evaluation and Treatment [CONS] Routine PT Evaluation and Treatment [CONS] Routine 10/17/20 11:15 Losartan [Cozaar] 100 mg PO DAILY Sertraline [Zoloft] 100 mg PO DAILY buPROPion [Wellbutrin XL] 150 mg PO DAILY carvediloL [Coreg] 12.5 mg PO BID 10/17/20 11:33 Cardiac Monitoring [RC] .As Directed 10/17/20 11:34 Notify Provider [RC] PRN 10/17/20 11:37 Patient Status [ADT] Routine 10/17/20 11:45 LORazepam [Ativan] See Protocol IV ASDIRECTED 10/17/20 11:51 SCD [Sequential Compression Device] [OM.PC] Routine 10/17/20 12:00 LORazepam [Ativan] See Protocol PO ASDIRECTED 10/17/20 12:12 Albuterol/Ipratropium [DuoNeb 3.0-0.5 MG/3 ML] 3 ml NEB Q2H PRN 10/17/20 12:13 RT Aerosol Therapy [RC] ASDIRECTED 10/17/20 18:00 Azithromycin [Zithromax] 500 mg PO Q24H 10/18/20 06:00 Pantoprazole [ProTONIX] 40 mg PO 0600 10/18/20 07:35 Supplement (Dietary) [Dietary Supplements] [RC] WITHMEALSANDBED 10/18/20 08:25 Consult to Speech Language Pathology [MANAGER [employer] Evaluation and Treatment] [CONS] Routine 10/18/20 08:28 INR,PT,PROTHROMBIN TIME [COAG] Routine 10/18/20 09:00 Folic Acid/Vitamin B Comp W-C [Renal Caps Softgel] 1 cap PO DAILY Multivitamins w-Iron/Ca/FA/Min [Thera M Plus] 1 tab PO DAILY hydroCHLOROthiazide 12.5 mg PO DAILY 10/18/20 18:00 cefTRIAXone [Rocephin] 1 gm IVPUSH Q24H 10/18/20 21:00 Thiamine [Vitamin B-1] 100 mg PO BEDTIME - Plan Plan:: 1. Patient will be admitted to inpatient care. Restart home medications for chronic conditions. 2. CIWA with CIWA protocol for possible/likely alcohol withdrawal 3. Monitor and replete electrolytes as necessary. Hypokalemia resolved, hyponatremia resolving. 4. OT/PT evaluation 5. Radiology review of chest x-ray shows likely pneumonia. Patient's presentation is concerning for aspiration pneumonia. Speech therapy evaluation for swallow study. Antibiotic treatment. 6. Patient has lower extremity edema and hypoalbuminemia likely secondary to poor oral nutrition intake. Patient encouraged to eat a proper diet and encouraged to use supplemental nutrition. 7. DVT prophylaxis: Patient has a history of endocarditis. Echocardiogram performed 08/08/2020 showed no significant aortic stenosis but did show moderate to severe mitral regurgitation. Patient has a systolic murmur that radiates to the right sternal border. Will use SCDs and frequent ambulation for DVT control due to history of endocarditis. 8. GI prophylaxis: ProtonixPPI, heart healthy diet 9. Disposition: Patient was brought to the hospital by his partner due to inability to complete activities of daily living. Patient will be evaluated by PT/OT for possible rehabilitation stay. Length of stay likely 3 or more days based on treatment response and PT/OT recommendations.
[2020-10-18] MEDS: Losartan 100 MG Tab PO SCH (09:29)
[2020-10-18] MEDS: Folic Acid/Vitamin B Complex With C Cap PO SCH (09:29)
[2020-10-18] MEDS: Sertraline 100 MG Tab PO SCH (09:29)
[2020-10-18] MEDS: Hydrochlorothiazide 12.5 MG Cap PO SCH (09:29)
[2020-10-18] MEDS: Multivitamins with Iron/Calcium/Folic Acid/Minerals Tab PO SCH (09:29)
[2020-10-18] MEDS: buPROPion 150 MG Tab.ER PO SCH (09:30)
[2020-10-18] MEDS: Carvedilol 12.5 MG Tab PO SCH ×2 (09:30→20:38)
--- NOTE | 2020-10-18 12:14 | CR ---
INDICATION: Possible aspiration - previous stroke. SWALLOWING FUNCTION WITH VIDEO FLUOROSCOPY: Utilizing 1 minute 49 seconds of video fluoroscopy time with various barium-tinged meals, evaluation of the swallowing mechanism was obtained 10/18/20 and compared with 06/02/19. Except for some mild spillage and slight delay in initiation of the swallowing mechanism at times, the swallowing mechanism did appear to be fairly normal without evidence of penetration, aspiration or retention. MTDD
[2020-10-18] MEDS: cefTRIAXone 1 GM Vial IVPUSH SCH (17:54)
[2020-10-18] MEDS: Azithromycin 500 MG Tab PO SCH (17:56)
[2020-10-18] MEDS: Sodium Chloride 0.9% 10 ML Syringe FLUSH PRN (17:59)
[2020-10-18] MEDS: Thiamine 100 MG Tab PO SCH (20:38)
[2020-10-19] MEDS: Pantoprazole 40 MG Tab.CR PO SCH (06:23)
--- NOTE | 2020-10-19 08:55 | PCM.PN ---
- General Info Date of Service: 10/19/20 Admission Dx/Problem (Free Text): Admission Diagnosis/Problem Admission Diagnosis/Problem Weakness Subjective Update: Patient states that he is feeling much better today and has no complaints Functional Status: Reports: Pain Controlled, Tolerating Diet, Ambulating, Urinating - Review of Systems General: Reports: No Symptoms HEENT: Reports: No Symptoms Pulmonary: Reports: No Symptoms Cardiovascular: Reports: No Symptoms Gastrointestinal: Reports: No Symptoms Genitourinary: Reports: No Symptoms Musculoskeletal: Reports: No Symptoms Skin: Reports: No Symptoms Neurological: Reports: Other (Chronic residual effects from stroke with right- sided hemiparesis) Psychiatric: Reports: No Symptoms - Patient Data Vitals - Most Recent: Last Vital Signs Temp 36.8 C 10/19/20 03:27 Pulse 75 10/19/20 03:27 Resp 18 10/19/20 03:27 BP 154/82 H 10/19/20 03:27 Pulse Ox 91 L 10/19/20 03:27 Weight - Most Recent: 80.428 kg Lab Results Last 24 Hours: Laboratory Results - last 24 hr 10/18/20 Range/Units 06:15 PT 10.8 (9.0-11.1) sec INR 1.00 (1.00-1.24) Med Orders - Current: Current Medications Albuterol/Ipratropium (Albuterol/Ipratropium 3.0-0.5 Mg/3 Ml Neb Soln) 3 ml NEB Q2H PRN PRN Reason: Shortness of Breath Azithromycin (Azithromycin 500 Mg Tab) 500 mg PO Q24H [facility] Stop: 10/19/20 23:59 Last Admin: 10/18/20 17:56 Dose: 500 mg Documented by: Bupropion HCl (Bupropion 150 Mg Tab.Er) 150 mg PO DAILY [facility] Last Admin: 10/18/20 09:30 Dose: 150 mg Documented by: Carvedilol (Carvedilol 12.5 Mg Tab) 12.5 mg PO BID [facility] Last Admin: 10/18/20 20:38 Dose: 12.5 mg Documented by: Ceftriaxone Sodium (Ceftriaxone 1 Gm Vial) 1 gm IVPUSH Q24H [facility] Last Admin: 10/18/20 17:54 Dose: 1 gm Documented by: Hydrochlorothiazide (Hydrochlorothiazide 12.5 Mg Cap) 12.5 mg PO DAILY [facility] Last Admin: 10/18/20 09:29 Dose: 12.5 mg Documented by: Lorazepam (Lorazepam 2 Mg/Ml Sdv) 0 mg IV ASDIRECTED [facility]; Protocol Lorazepam (Lorazepam 1 Mg Tab) 0 mg PO ASDIRECTED [facility]; Protocol Losartan Potassium (Losartan 100 Mg Tab) 100 mg PO DAILY [facility] Last Admin: 10/18/20 09:29 Dose: 100 mg Documented by: Multivit/Ca Carb/B Cmplx/FA/Prenat (Folic Acid/Vitamin B Complex With C Cap) 1 cap PO DAILY [facility] Last Admin: 10/18/20 09:29 Dose: 1 cap Documented by: Multivitamins/Minerals (Multivitamins With Iron/Calcium/Folic Acid/Minerals Tab) 1 tab PO DAILY [facility] Last Admin: 10/18/20 09:29 Dose: 1 tab Documented by: Pantoprazole Sodium (Pantoprazole 40 Mg Tab.Cr) 40 mg PO 0600 [facility] Last Admin: 10/19/20 06:23 Dose: 40 mg Documented by: Sertraline HCl (Sertraline 100 Mg Tab) 100 mg PO DAILY [facility] Last Admin: 10/18/20 09:29 Dose: 100 mg Documented by: Sodium Chloride (Sodium Chloride 0.9% 10 Ml Syringe) 10 ml FLUSH ASDIRECTED PRN PRN Reason: Keep Vein Open Last Admin: 10/18/20 17:59 Dose: 10 ml Documented by: Thiamine HCl (Thiamine 100 Mg Tab) 100 mg PO BEDTIME [facility] Last Admin: 10/18/20 20:38 Dose: 100 mg Documented by: Discontinued Medications Potassium Chloride/Sodium Chloride (Normal Saline With 20 Meq Kcl) 1,000 mls @ 125 mls/hr IV ASDIRECTED [facility] Last Admin: 10/17/20 09:58 Dose: 125 mls/hr Documented by: Potassium Chloride/Sodium Chloride (Normal Saline With 20 Meq Kcl) 1,000 mls @ 125 mls/hr IV Q8H [facility] Last Admin: 10/18/20 02:01 Dose: 125 mls/hr Documented by: Ceftriaxone Sodium 1 gm/ (Sodium Chloride) 50 mls @ 200 mls/hr IV Q24H [facility] Last Admin: 10/17/20 18:15 Dose: 200 mls/hr Documented by: Lidocaine HCl (Lidocaine 2% Hcl 6 Ml Jel.Pf.Juanjo) 6 ml .XX ONETIME ONE Stop: 07/12/21 11:15 Last Admin: 10/17/20 11:36 Dose: 6 ml Documented by: Comments:: Patient was sitting up in bed eating breakfast, awake, alert - Exam Quality Assessment: Supplemental Oxygen, DVT Prophylaxis General: Alert, Oriented, Cooperative, No Acute Distress HEENT: EOMI Lungs: Decreased Breath Sounds Cardiovascular: Regular Rate, Regular Rhythm, Murmurs GI/Abdominal Exam: Normal Bowel Sounds, Non-Tender Extremities: Pedal Edema Peripheral Pulses: 2+: Radial (L), Radial (R), Dorsalis Pedis (L), Dorsalis Pedis (R) Skin: Warm, Dry, Intact Wound/Incisions: Healing Well Neurological: No: Strength Equal Bilateral Psy/Mental Status: Alert, Normal Affect, Normal Mood - Patient Data Lab Results Last 24 hrs: Laboratory Results - last 24 hr 10/18/20 Range/Units 06:15 PT 10.8 (9.0-11.1) sec INR 1.00 (1.00-1.24) Result Diagrams: 10/18/20 06:15 10/18/20 06:15 Sepsis Event Note - Evaluation Sepsis Screening Result: No Definite Risk - Focused Exam Vital Signs: Vital Signs Temp Pulse Resp BP Pulse Ox 10/19/20 03:27 36.8 C 75 18 154/82 H 91 L 10/19/20 00:00 37.1 C 76 18 140/78 93 L - Problem List & Annotations (1) History of stroke SNOMED Code(s): 154451304 Code(s): Z86.73 - PRSNL HX OF TIA (TIA), AND CEREB INFRC W/O RESID DEFICITS Status: Chronic Current Visit: Yes (2) Hypokalemia SNOMED Code(s): 27570888 Code(s): E87.6 - HYPOKALEMIA Status: Resolved Current Visit: Yes (3) Essential hypertension SNOMED Code(s): 48287230 Code(s): I10 - ESSENTIAL (PRIMARY) HYPERTENSION Status: Chronic Current Visit: Yes (4) History of endocarditis SNOMED Code(s): 610200349 Code(s): Z86.79 - PERSONAL HISTORY OF OTHER DISEASES OF THE CIRCULATORY SYSTEM Status: Chronic Current Visit: Yes (5) Valvular heart disease Status: Chronic Current Visit: Yes (6) COPD (chronic obstructive pulmonary disease) SNOMED Code(s): 78854513 Code(s): J44.9 - CHRONIC OBSTRUCTIVE PULMONARY DISEASE, UNSPECIFIED Status: Chronic Current Visit: Yes (7) Alcoholism SNOMED Code(s): 3269612 Code(s): F10.20 - ALCOHOL DEPENDENCE, UNCOMPLICATED Status: Acute Current Visit: Yes (8) GERD (gastroesophageal reflux disease) SNOMED Code(s): 459528754 Code(s): K21.9 - GASTRO-ESOPHAGEAL REFLUX DISEASE WITHOUT ESOPHAGITIS Status: Chronic Current Visit: Yes (9) Palliative care encounter SNOMED Code(s): 272347229, 852709904 Code(s): Z51.5 - ENCOUNTER FOR PALLIATIVE CARE Status: Acute Current Visit: Yes (10) Hyponatremia SNOMED Code(s): 38899068 Code(s): E87.1 - HYPO-OSMOLALITY AND HYPONATREMIA Status: Acute Current Visit: Yes (11) Right hemiparesis SNOMED Code(s): 522732284 Code(s): G81.91 - HEMIPLEGIA, UNSPECIFIED AFFECTING RIGHT DOMINANT SIDE Status: Chronic Current Visit: Yes (12) Malnutrition compromising bodily function SNOMED Code(s): 4453389 Code(s): E46 - UNSPECIFIED PROTEIN-CALORIE MALNUTRITION Status: Acute Current Visit: Yes (13) Hypoalbuminemia SNOMED Code(s): 166771219 Code(s): E88.09 - OTH DISORDERS OF PLASMA-PROTEIN METABOLISM, NEC Status: Acute Current Visit: Yes (14) Lower extremity edema SNOMED Code(s): 238128224 Code(s): R60.0 - LOCALIZED EDEMA Status: Acute Current Visit: Yes - Problem List Review Problem List Initiated/Reviewed/Updated: Yes - My Orders Last 24 Hours: My Active Orders 10/18/20 08:25 Consult to Speech Language Pathology [PERIODICALS LIBRARY ASSISTANT Evaluation and Treatment] [CONS] Routine 10/18/20 09:00 Folic Acid/Vitamin B Comp W-C [Renal Caps Softgel] 1 cap PO DAILY Multivitamins w-Iron/Ca/FA/Min [Thera M Plus] 1 tab PO DAILY hydroCHLOROthiazide 12.5 mg PO DAILY 10/18/20 18:00 cefTRIAXone [Rocephin] 1 gm IVPUSH Q24H 10/18/20 21:00 Thiamine [Vitamin B-1] 100 mg PO BEDTIME - Plan Plan:: 1. Patient will be admitted to inpatient care. Restart home medications for chronic conditions. 2. CIWA with CIWA protocol for possible/likely alcohol withdrawal 3. Monitor and replete electrolytes as necessary. Hypokalemia resolved, hyponatremia resolving. 4. OT/PT evaluation - patient will continue with OT PT to improve functional capacity and ADLs 5. Radiology review of chest x-ray shows likely pneumonia. Patient's presentation is concerning for aspiration pneumonia. Speech therapy evaluation for swallow study showed occasional delayed initiation phase but otherwise within normal limits. Continue antibiotic treatment. 6. Patient has lower extremity edema and hypoalbuminemia likely secondary to poor oral nutrition intake. Patient encouraged to eat a proper diet and encouraged to use supplemental nutrition. 7. DVT prophylaxis: Patient has a history of endocarditis. Echocardiogram performed 08/08/2020 showed no significant aortic stenosis but did show moderate to severe mitral regurgitation. Patient has a systolic murmur that radiates to the right sternal border. Will use SCDs and frequent ambulation for DVT control due to history of endocarditis. 8. GI prophylaxis: ProtonixPPI, heart healthy diet 9. Disposition: Patient was brought to the hospital by his partner due to inability to complete activities of daily living. Length of stay likely 3 or more days based on treatment response and PT/OT recommendations.
[2020-10-19] MEDS: Multivitamins with Iron/Calcium/Folic Acid/Minerals Tab PO SCH (09:01)
[2020-10-19] MEDS: Sertraline 100 MG Tab PO SCH (09:01)
[2020-10-19] MEDS: Hydrochlorothiazide 12.5 MG Cap PO SCH (09:01)
[2020-10-19] MEDS: Folic Acid/Vitamin B Complex With C Cap PO SCH (09:01)
[2020-10-19] MEDS: buPROPion 150 MG Tab.ER PO SCH (09:01)
[2020-10-19] MEDS: Carvedilol 12.5 MG Tab PO SCH ×2 (09:03→21:03)
[2020-10-19] MEDS: Losartan 100 MG Tab PO SCH (09:03)
[2020-10-19] MEDS: cefTRIAXone 1 GM Vial IVPUSH SCH (18:07)
[2020-10-19] MEDS: Azithromycin 500 MG Tab PO SCH (18:07)
[2020-10-19] MEDS: Thiamine 100 MG Tab PO SCH (21:03)
[2020-10-20] MEDS: Pantoprazole 40 MG Tab.CR PO SCH (05:11)
[2020-10-20] MEDS: Carvedilol 12.5 MG Tab PO SCH ×2 (08:47→20:07)
[2020-10-20] MEDS: buPROPion 150 MG Tab.ER PO SCH (08:47)
[2020-10-20] MEDS: Losartan 100 MG Tab PO SCH (08:48)
[2020-10-20] MEDS: Hydrochlorothiazide 12.5 MG Cap PO SCH (08:49)
[2020-10-20] MEDS: Folic Acid/Vitamin B Complex With C Cap PO SCH (08:49)
[2020-10-20] MEDS: Sertraline 100 MG Tab PO SCH (08:49)
[2020-10-20] MEDS: Multivitamins with Iron/Calcium/Folic Acid/Minerals Tab PO SCH (08:50)
--- NOTE | 2020-10-20 10:49 | PCM.PN ---
- General Info Date of Service: 10/20/20 Admission Dx/Problem (Free Text): Admission Diagnosis/Problem Admission Diagnosis/Problem Weakness Subjective Update: Patient states that he feels well today and has no new complaints Functional Status: Reports: Pain Controlled, Tolerating Diet, Ambulating, Urinating - Review of Systems General: Reports: Weakness, Fatigue HEENT: Reports: No Symptoms Pulmonary: Reports: No Symptoms Cardiovascular: Reports: No Symptoms Gastrointestinal: Reports: No Symptoms Genitourinary: Reports: No Symptoms Musculoskeletal: Reports: No Symptoms Skin: Reports: No Symptoms Neurological: Reports: Numbness, Difficulty Walking, Weakness, Gait Disturbance Psychiatric: Reports: No Symptoms - Patient Data Vitals - Most Recent: Last Vital Signs Temp 36.8 C 10/20/20 08:40 Pulse 85 10/20/20 08:47 Resp 16 10/20/20 08:40 BP 116/66 10/20/20 08:48 Pulse Ox 93 L 10/20/20 08:40 Weight - Most Recent: 80.428 kg Med Orders - Current: Current Medications Albuterol/Ipratropium (Albuterol/Ipratropium 3.0-0.5 Mg/3 Ml Neb Soln) 3 ml NEB Q2H PRN PRN Reason: Shortness of Breath Bupropion HCl (Bupropion 150 Mg Tab.Er) 150 mg PO DAILY [facility] Last Admin: 10/20/20 08:47 Dose: 150 mg Documented by: Carvedilol (Carvedilol 12.5 Mg Tab) 12.5 mg PO BID [facility] Last Admin: 10/20/20 08:47 Dose: 12.5 mg Documented by: Ceftriaxone Sodium (Ceftriaxone 1 Gm Vial) 1 gm IVPUSH Q24H [facility] Last Admin: 10/19/20 18:07 Dose: 1 gm Documented by: Hydrochlorothiazide (Hydrochlorothiazide 12.5 Mg Cap) 12.5 mg PO DAILY [facility] Last Admin: 10/20/20 08:49 Dose: 12.5 mg Documented by: Lorazepam (Lorazepam 2 Mg/Ml Sdv) 0 mg IV ASDIRECTED [facility]; Protocol Lorazepam (Lorazepam 1 Mg Tab) 0 mg PO ASDIRECTED [facility]; Protocol Losartan Potassium (Losartan 100 Mg Tab) 100 mg PO DAILY [facility] Last Admin: 10/20/20 08:48 Dose: 100 mg Documented by: Multivit/Ca Carb/B Cmplx/FA/Prenat (Folic Acid/Vitamin B Complex With C Cap) 1 cap PO DAILY [facility] Last Admin: 10/20/20 08:49 Dose: 1 cap Documented by: Multivitamins/Minerals (Multivitamins With Iron/Calcium/Folic Acid/Minerals Tab) 1 tab PO DAILY [facility] Last Admin: 10/20/20 08:50 Dose: 1 tab Documented by: Pantoprazole Sodium (Pantoprazole 40 Mg Tab.Cr) 40 mg PO 0600 [facility] Last Admin: 10/20/20 05:11 Dose: 40 mg Documented by: Sertraline HCl (Sertraline 100 Mg Tab) 100 mg PO DAILY [facility] Last Admin: 10/20/20 08:49 Dose: 100 mg Documented by: Sodium Chloride (Sodium Chloride 0.9% 10 Ml Syringe) 10 ml FLUSH ASDIRECTED PRN PRN Reason: Keep Vein Open Last Admin: 10/18/20 17:59 Dose: 10 ml Documented by: Thiamine HCl (Thiamine 100 Mg Tab) 100 mg PO BEDTIME [facility] Last Admin: 10/19/20 21:03 Dose: 100 mg Documented by: Discontinued Medications Azithromycin (Azithromycin 500 Mg Tab) 500 mg PO Q24H [facility] Stop: 10/19/20 23:59 Last Admin: 10/19/20 18:07 Dose: 500 mg Documented by: Potassium Chloride/Sodium Chloride (Normal Saline With 20 Meq Kcl) 1,000 mls @ 125 mls/hr IV ASDIRECTED [facility] Last Admin: 10/17/20 09:58 Dose: 125 mls/hr Documented by: Potassium Chloride/Sodium Chloride (Normal Saline With 20 Meq Kcl) 1,000 mls @ 125 mls/hr IV Q8H [facility] Last Admin: 10/18/20 02:01 Dose: 125 mls/hr Documented by: Ceftriaxone Sodium 1 gm/ (Sodium Chloride) 50 mls @ 200 mls/hr IV Q24H [facility] Last Admin: 10/17/20 18:15 Dose: 200 mls/hr Documented by: Lidocaine HCl (Lidocaine 2% Hcl 6 Ml Jel.Pf.Juanjo) 6 ml .XX ONETIME ONE Stop: 10/17/20 11:15 Last Admin: 10/17/20 11:36 Dose: 6 ml Documented by: Comments:: Patient sitting up in bed, awake - Exam Quality Assessment: Supplemental Oxygen, DVT Prophylaxis General: Alert, Cooperative Lungs: Decreased Breath Sounds, Crackles Cardiovascular: Regular Rate, Regular Rhythm, Murmurs GI/Abdominal Exam: Normal Bowel Sounds, Non-Tender Extremities: Pedal Edema Peripheral Pulses: 1+: Dorsalis Pedis (L), Dorsalis Pedis (R), 2+: Radial (L), Radial (R) Skin: Warm, Dry, Intact Wound/Incisions: Healing Well Neurological: No: Strength Equal Bilateral Psy/Mental Status: Alert, Anxious - Patient Data Result Diagrams: 10/18/20 06:15 10/18/20 06:15 Sepsis Event Note - Evaluation Sepsis Screening Result: No Definite Risk - Focused Exam Vital Signs: Vital Signs Temp Pulse Pulse Resp BP BP Pulse Ox 10/20/20 08:48 116/66 10/20/20 08:47 85 116/66 10/20/20 08:40 36.8 C 85 16 116/66 93 L 10/20/20 05:30 36.8 C 66 20 140/77 94 L 10/20/20 00:00 67 18 - Problem List & Annotations (1) History of stroke SNOMED Code(s): 734364265 Code(s): Z86.73 - PRSNL HX OF TIA (TIA), AND CEREB INFRC W/O RESID DEFICITS Status: Chronic Current Visit: Yes (2) Hypokalemia SNOMED Code(s): 53488241 Code(s): E87.6 - HYPOKALEMIA Status: Resolved Current Visit: Yes (3) Essential hypertension SNOMED Code(s): 02396884 Code(s): I10 - ESSENTIAL (PRIMARY) HYPERTENSION Status: Chronic Current Visit: Yes (4) History of endocarditis SNOMED Code(s): 853079093 Code(s): Z86.79 - PERSONAL HISTORY OF OTHER DISEASES OF THE CIRCULATORY SYSTEM Status: Chronic Current Visit: Yes (5) Valvular heart disease Status: Chronic Current Visit: Yes (6) COPD (chronic obstructive pulmonary disease) SNOMED Code(s): 82175378 Code(s): J44.9 - CHRONIC OBSTRUCTIVE PULMONARY DISEASE, UNSPECIFIED Status: Chronic Current Visit: Yes (7) Alcoholism SNOMED Code(s): 1666101 Code(s): F10.20 - ALCOHOL DEPENDENCE, UNCOMPLICATED Status: Acute Current Visit: Yes (8) GERD (gastroesophageal reflux disease) SNOMED Code(s): 738309705 Code(s): K21.9 - GASTRO-ESOPHAGEAL REFLUX DISEASE WITHOUT ESOPHAGITIS Status: Chronic Current Visit: Yes (9) Palliative care encounter SNOMED Code(s): 185434037, 898667942 Code(s): Z51.5 - ENCOUNTER FOR PALLIATIVE CARE Status: Acute Current Visit: Yes (10) Hyponatremia SNOMED Code(s): 56405195 Code(s): E87.1 - HYPO-OSMOLALITY AND HYPONATREMIA Status: Acute Current Visit: Yes (11) Right hemiparesis SNOMED Code(s): 733343181 Code(s): G81.91 - HEMIPLEGIA, UNSPECIFIED AFFECTING RIGHT DOMINANT SIDE Status: Chronic Current Visit: Yes (12) Malnutrition compromising bodily function SNOMED Code(s): 2155887 Code(s): E46 - UNSPECIFIED PROTEIN-CALORIE MALNUTRITION Status: Acute Current Visit: Yes (13) Hypoalbuminemia SNOMED Code(s): 660910129 Code(s): E88.09 - OT DISORDERS OF PLASMA-PROTEIN METABOLISM, NEC Status: Acute Current Visit: Yes (14) Lower extremity edema SNOMED Code(s): 882244197 Code(s): R60.0 - LOCALIZED EDEMA Status: Acute Current Visit: Yes - Problem List Review Problem List Initiated/Reviewed/Updated: Yes - My Orders Last 24 Hours: My Active Orders 10/19/20 15:18 IS (RT) [RT Incentive Spirometry] [RC] Q2HWA 10/21/20 CBC WITH AUTO DIFF [HEME] Routine COMPREHENSIVE METABOLIC PN,CMP [CHEM] Routine - Plan Plan:: 1. Patient will be admitted to inpatient care. Restart home medications for chronic conditions. 2. CIWA with CIWA protocol for possible/likely alcohol withdrawal 3. Monitor and replete electrolytes as necessary. Hypokalemia resolved, hyponatremia resolving. 4. OT/PT evaluation - patient will continue with OT PT to improve functional capacity and ADLs 5. Radiology review of chest x-ray shows likely pneumonia. Patient's presentation is concerning for aspiration pneumonia. Speech therapy evaluation for swallow study showed occasional delayed initiation phase but otherwise within normal limits. Continue antibiotic treatment. 6. Patient has lower extremity edema and hypoalbuminemia likely secondary to poor oral nutrition intake. Patient encouraged to eat a proper diet and encouraged to use supplemental nutrition. 7. DVT prophylaxis: Patient has a history of endocarditis. Echocardiogram performed 08/08/2020 showed no significant aortic stenosis but did show moderate to severe mitral regurgitation. Patient has a systolic murmur that radiates to the right sternal border. Will use SCDs and frequent ambulation for DVT control due to history of endocarditis. 8. GI prophylaxis: ProtonixPPI, heart healthy diet 9. Disposition: Continue current treatment as above. There remains concern for alcohol withdrawal and the patient has a history of alcohol withdrawal. Patient likely be transferred to retirement on 08/24/2020 pending clinical improvement and acceptance.
[2020-10-20] MEDS: cefTRIAXone 1 GM Vial IVPUSH SCH (17:49)
[2020-10-20] MEDS: Thiamine 100 MG Tab PO SCH (20:07)
[2020-10-21] MEDS: Pantoprazole 40 MG Tab.CR PO SCH (05:37)
--- NOTE | 2020-10-21 10:18 | PCM.PN ---
- General Info Date of Service: 10/21/20 Subjective Update: Jose states he is feeling okay. Coughing a little bit but not getting anything up. Denies any pain in chest or abdomen. Eating and drinking okay per patient. Nursing reported he ate 90% of his breakfast. MME . No evidence of tremors or withdrawal symptoms >96 hours. CIWAA score 1 this morning. - Patient Data Vitals - Most Recent: Last Vital Signs Temp 98.2 F 10/21/20 04:00 Pulse 74 10/20/20 20:07 Resp 16 10/21/20 04:00 BP 138/72 10/21/20 04:00 Pulse Ox 92 L 10/21/20 04:00 Weight - Most Recent: 177 lb 5 oz Lab Results Last 24 Hours: Laboratory Results - last 24 hr 10/21/20 10/21/20 Range/Units 06:30 06:30 WBC 9.0 (3.2-10.1) x10-3/uL RBC 3.89 L (3.90-5.90) x10(6)uL Hgb 12.7 L (12.9-17.7) g/dL Hct 38.1 L (38.3-50.1) % MCV 98.0 (80.8-98.7) fL MCH 32.6 (27.0-33.3) pg MCHC 33.3 (28.7-35.3) g/dL RDW 12.7 (12.4-15.0) % Plt Count 239 (117-477) x10(3)uL MPV 8.5 (6.7-11.0) fL Neut % (Auto) 78.5 H (40.3-71.8) % Lymph % (Auto) 7.3 L (15.8-45.3) % [place] % (Auto) 10.4 (5.5-15.2) % Eos % (Auto) 3.5 (0.1-6.8) % Baso % (Auto) 0.3 (0.3-3.8) % Neut # (Auto) 7.1 H (1.7-6.9) x10-3/uL Lymph # (Auto) 0.7 (0.5-4.5) x10-3/uL [place] # (Auto) 0.9 (0.0-1.2) x10-3/uL Eos # (Auto) 0.3 (0.0-0.6) x10-3/uL Baso # (Auto) 0.0 (0.0-0.3) x10-3/uL Sodium 139 (135-145) mmol/L Potassium 4.1 (3.5-5.3) mmol/L Chloride 100 (100-110) mmol/L Carbon Dioxide 32 (21-32) mmol/L BUN 20 H D (7-18) mg/dL Creatinine 0.9 (0.70-1.30) mg/dL Est Cr Clr Drug Dosing 90.01 mL/min Estimated GFR (MDRD) > 60 (>60) BUN/Creatinine Ratio 22.2 H (9-20) Glucose 110 (80-116) mg/dL Calcium 8.8 (8.6-10.2) mg/dL Total Bilirubin 0.4 (0.1-1.3) mg/dL AST 14 D (5-25) IU/L ALT 21 D (12-36) U/L Alkaline Phosphatase 145 H (56-112) IU/L Total Protein 6.6 (6.0-8.0) g/dL Albumin 2.9 L (3.2-4.6) g/dL Globulin 3.7 g/dL Albumin/Globulin Ratio 0.8 Med Orders - Current: Current Medications Albuterol/Ipratropium (Albuterol/Ipratropium 3.0-0.5 Mg/3 Ml Neb Soln) 3 ml NEB Q2H PRN PRN Reason: Shortness of Breath Bupropion HCl (Bupropion 150 Mg Tab.Er) 150 mg PO DAILY [facility] Last Admin: 10/20/20 08:47 Dose: 150 mg Documented by: Carvedilol (Carvedilol 12.5 Mg Tab) 12.5 mg PO BID [facility] Last Admin: 10/20/20 20:07 Dose: 12.5 mg Documented by: Ceftriaxone Sodium (Ceftriaxone 1 Gm Vial) 1 gm IVPUSH Q24H [facility] Last Admin: 10/20/20 17:49 Dose: 1 gm Documented by: Hydrochlorothiazide (Hydrochlorothiazide 12.5 Mg Cap) 12.5 mg PO DAILY [facility] Last Admin: 10/20/20 08:49 Dose: 12.5 mg Documented by: Lorazepam (Lorazepam 2 Mg/Ml Sdv) 0 mg IV ASDIRECTED [facility]; Protocol Lorazepam (Lorazepam 1 Mg Tab) 0 mg PO ASDIRECTED [facility]; Protocol Losartan Potassium (Losartan 100 Mg Tab) 100 mg PO DAILY [facility] Last Admin: 10/20/20 08:48 Dose: 100 mg Documented by: Multivit/Ca Carb/B Cmplx/FA/Prenat (Folic Acid/Vitamin B Complex With C Cap) 1 cap PO DAILY [facility] Last Admin: 10/20/20 08:49 Dose: 1 cap Documented by: Multivitamins/Minerals (Multivitamins With Iron/Calcium/Folic Acid/Minerals Tab) 1 tab PO DAILY [facility] Last Admin: 10/20/20 08:50 Dose: 1 tab Documented by: Pantoprazole Sodium (Pantoprazole 40 Mg Tab.Cr) 40 mg PO 0600 [facility] Last Admin: 10/21/20 05:37 Dose: 40 mg Documented by: Sertraline HCl (Sertraline 100 Mg Tab) 100 mg PO DAILY [facility] Last Admin: 10/20/20 08:49 Dose: 100 mg Documented by: Sodium Chloride (Sodium Chloride 0.9% 10 Ml Syringe) 10 ml FLUSH ASDIRECTED PRN PRN Reason: Keep Vein Open Last Admin: 10/18/20 17:59 Dose: 10 ml Documented by: Thiamine HCl (Thiamine 100 Mg Tab) 100 mg PO BEDTIME [facility] Last Admin: 10/20/20 20:07 Dose: 100 mg Documented by: Discontinued Medications Azithromycin (Azithromycin 500 Mg Tab) 500 mg PO Q24H [facility] Stop: 10/19/20 23:59 Last Admin: 10/19/20 18:07 Dose: 500 mg Documented by: Potassium Chloride/Sodium Chloride (Normal Saline With 20 Meq Kcl) 1,000 mls @ 125 mls/hr IV ASDIRECTED [facility] Last Admin: 10/17/20 09:58 Dose: 125 mls/hr Documented by: Potassium Chloride/Sodium Chloride (Normal Saline With 20 Meq Kcl) 1,000 mls @ 125 mls/hr IV Q8H [facility] Last Admin: 10/18/20 02:01 Dose: 125 mls/hr Documented by: Ceftriaxone Sodium 1 gm/ (Sodium Chloride) 50 mls @ 200 mls/hr IV Q24H [facility] Last Admin: 10/17/20 18:15 Dose: 200 mls/hr Documented by: Lidocaine HCl (Lidocaine 2% Hcl 6 Ml Jel.Pf.Juanjo) 6 ml .XX ONETIME ONE Stop: 10/17/20 11:15 Last Admin: 10/17/20 11:36 Dose: 6 ml Documented by: - Exam General: Alert, Oriented (person), Cooperative Lungs: Clear to Auscultation, Normal Respiratory Effort, Crackles (occasional RLL), Wheezing (RUL) Cardiovascular: Regular Rate, Regular Rhythm, Murmurs GI/Abdominal Exam: Normal Bowel Sounds, Soft, Non-Tender, No Distention Extremities: No Pedal Edema - Patient Data Lab Results Last 24 hrs: Laboratory Results - last 24 hr 10/21/20 10/21/20 Range/Units 06:30 06:30 WBC 9.0 (3.2-10.1) x10-3/uL RBC 3.89 L (3.90-5.90) x10(6)uL Hgb 12.7 L (12.9-17.7) g/dL Hct 38.1 L (38.3-50.1) % MCV 98.0 (80.8-98.7) fL MCH 32.6 (27.0-33.3) pg MCHC 33.3 (28.7-35.3) g/dL RDW 12.7 (12.4-15.0) % Plt Count 239 (117-477) x10(3)uL MPV 8.5 (6.7-11.0) fL Neut % (Auto) 78.5 H (40.3-71.8) % Lymph % (Auto) 7.3 L (15.8-45.3) % [place] % (Auto) 10.4 (5.5-15.2) % Eos % (Auto) 3.5 (0.1-6.8) % Baso % (Auto) 0.3 (0.3-3.8) % Neut # (Auto) 7.1 H (1.7-6.9) x10-3/uL Lymph # (Auto) 0.7 (0.5-4.5) x10-3/uL [place] # (Auto) 0.9 (0.0-1.2) x10-3/uL Eos # (Auto) 0.3 (0.0-0.6) x10-3/uL Baso # (Auto) 0.0 (0.0-0.3) x10-3/uL Sodium 139 (135-145) mmol/L Potassium 4.1 (3.5-5.3) mmol/L Chloride 100 (100-110) mmol/L Carbon Dioxide 32 (21-32) mmol/L BUN 20 H D (7-18) mg/dL Creatinine 0.9 (0.70-1.30) mg/dL Est Cr Clr Drug Dosing 90.01 mL/min Estimated GFR (MDRD) > 60 (>60) BUN/Creatinine Ratio 22.2 H (9-20) Glucose 110 (80-116) mg/dL Calcium 8.8 (8.6-10.2) mg/dL Total Bilirubin 0.4 (0.1-1.3) mg/dL AST 14 D (5-25) IU/L ALT 21 D (12-36) U/L Alkaline Phosphatase 145 H (56-112) IU/L Total Protein 6.6 (6.0-8.0) g/dL Albumin 2.9 L (3.2-4.6) g/dL Globulin 3.7 g/dL Albumin/Globulin Ratio 0.8 Result Diagrams: 10/21/20 06:30 10/21/20 06:30 Sepsis Event Note - Evaluation Sepsis Screening Result: No Definite Risk - Focused Exam Vital Signs: Vital Signs Temp Resp BP Pulse Ox 10/21/20 04:00 98.2 F 16 138/72 92 L 10/21/20 00:00 98.4 F 16 144/77 H 91 L - Problem List & Annotations (1) Alcoholism SNOMED Code(s): 6009011 Code(s): F10.20 - ALCOHOL DEPENDENCE, UNCOMPLICATED Status: Acute Current Visit: Yes (2) Malnutrition compromising bodily function SNOMED Code(s): 3397890 Code(s): E46 - UNSPECIFIED PROTEIN-CALORIE MALNUTRITION Status: Acute Current Visit: Yes (3) Palliative care encounter SNOMED Code(s): 142224656, 135670403 Code(s): Z51.5 - ENCOUNTER FOR PALLIATIVE CARE Status: Chronic Current Visit: Yes (4) Weakness SNOMED Code(s): 82038559 Code(s): R53.1 - WEAKNESS Status: Acute Current Visit: Yes (5) COPD (chronic obstructive pulmonary disease) SNOMED Code(s): 25082311 Code(s): J44.9 - CHRONIC OBSTRUCTIVE PULMONARY DISEASE, UNSPECIFIED Status: Chronic Current Visit: Yes (6) Essential hypertension SNOMED Code(s): 08351149 Code(s): I10 - ESSENTIAL (PRIMARY) HYPERTENSION Status: Chronic Current Visit: Yes (7) GERD (gastroesophageal reflux disease) SNOMED Code(s): 800551019 Code(s): K21.9 - GASTRO-ESOPHAGEAL REFLUX DISEASE WITHOUT ESOPHAGITIS Status: Chronic Current Visit: Yes (8) History of stroke SNOMED Code(s): 402148397 Code(s): Z86.73 - PRSNL HX OF TIA (TIA), AND CEREB INFRC W/O RESID DEFICITS Status: Chronic Current Visit: Yes (9) Valvular heart disease Status: Chronic Current Visit: Yes (10) Pneumonia SNOMED Code(s): 138715547 Code(s): J18.9 - PNEUMONIA, UNSPECIFIED ORGANISM Status: Acute Current Vi sit: Yes Qualifiers: Laterality: right Lung location: lower lobe of lung - Problem List Review Problem List Initiated/Reviewed/Updated: Yes - Plan Plan:: 1. RLL pneumonia: Rocephin day 4. 2. Discontinue CIWAA protocol, scores have been 1 for >24hrs. 3. Weakness: OT/PT continue strengthening & ADLs. 4. DVT prophylaxis: Will use SCDs and frequent ambulation. 5. Disposition: Transferred to intermediate on 08/24/2020 at 1030am.
[2020-10-21] MEDS: cefTRIAXone 1 GM Vial IVPUSH SCH (18:05)
[2020-10-21] MEDS: Sodium Chloride 0.9% 10 ML Syringe FLUSH PRN (18:05)
[2020-10-21] MEDS: Losartan 100 MG Tab PO SCH (19:46)
[2020-10-21] MEDS: Carvedilol 12.5 MG Tab PO SCH ×2 (19:46→20:35)
[2020-10-21] MEDS: Hydrochlorothiazide 12.5 MG Cap PO SCH (19:47)
[2020-10-21] MEDS: Folic Acid/Vitamin B Complex With C Cap PO SCH (19:47)
[2020-10-21] MEDS: Multivitamins with Iron/Calcium/Folic Acid/Minerals Tab PO SCH (19:47)
[2020-10-21] MEDS: Sertraline 100 MG Tab PO SCH (19:48)
[2020-10-21] MEDS: buPROPion 150 MG Tab.ER PO SCH (19:48)
[2020-10-21] MEDS: Thiamine 100 MG Tab PO SCH (20:36)
[2020-10-22] MEDS: Pantoprazole 40 MG Tab.CR PO SCH (05:22)
[2020-10-22] MEDS: Losartan 100 MG Tab PO SCH (08:56)
[2020-10-22] MEDS: Carvedilol 12.5 MG Tab PO SCH ×2 (08:57→20:28)
[2020-10-22] MEDS: Folic Acid/Vitamin B Complex With C Cap PO SCH (08:59)
[2020-10-22] MEDS: Hydrochlorothiazide 12.5 MG Cap PO SCH (09:00)
[2020-10-22] MEDS: buPROPion 150 MG Tab.ER PO SCH (09:01)
[2020-10-22] MEDS: Sertraline 100 MG Tab PO SCH (09:01)
[2020-10-22] MEDS: Multivitamins with Iron/Calcium/Folic Acid/Minerals Tab PO SCH (09:02)
[2020-10-22] MEDS ORDERED: Albuterol/Ipratropium 3.0-0.5 MG/3 ML Neb Soln NEB PRN (09:48)
--- NOTE | 2020-10-22 15:03 | PCM.PN ---
- General Info Date of Service: 10/22/20 Subjective Update: He states he is not coughing, or short of breath. No complaint of pain. He is concerned about going to [place], feels its half-way. He was in [place] after his stroke a few years ago, improved and was discharged home. No nausea/vomiting. No fevers. - Patient Data Vitals - Most Recent: Last Vital Signs Temp 98.4 F 10/22/20 08:00 Pulse 71 10/22/20 14:00 Resp 18 10/22/20 08:00 BP 99/60 10/22/20 08:57 Pulse Ox 94 L 10/22/20 10:00 Weight - Most Recent: 177 lb 5 oz I&O - Last 24 Hours: Intake & Output 10/21/20 10/22/20 10/22/20 22:59 06:59 14:59 Intake Total 200 150 Balance 200 150 Med Orders - Current: Current Medications Albuterol/Ipratropium (Albuterol/Ipratropium 3.0-0.5 Mg/3 Ml Neb Soln) 3 ml NEB Q4H PRN PRN Reason: Shortness of Breath Last Admin: 10/22/20 13:17 Dose: 3 ml Documented by: Bupropion HCl (Bupropion 150 Mg Tab.Er) 150 mg PO DAILY [facility] Last Admin: 10/22/20 09:01 Dose: 150 mg Documented by: Carvedilol (Carvedilol 12.5 Mg Tab) 12.5 mg PO BID [facility] Last Admin: 10/22/20 08:57 Dose: 12.5 mg Documented by: Hydrochlorothiazide (Hydrochlorothiazide 12.5 Mg Cap) 12.5 mg PO DAILY [facility] Last Admin: 10/22/20 09:00 Dose: 12.5 mg Documented by: Lorazepam (Lorazepam 1 Mg Tab) 0 mg PO ASDIRECTED [facility]; Protocol Losartan Potassium (Losartan 100 Mg Tab) 100 mg PO DAILY [facility] Last Admin: 10/22/20 08:56 Dose: 100 mg Documented by: Multivit/Ca Carb/B Cmplx/FA/Prenat (Folic Acid/Vitamin B Complex With C Cap) 1 cap PO DAILY [facility] Last Admin: 10/22/20 08:59 Dose: 1 cap Documented by: Multivitamins/Minerals (Multivitamins With Iron/Calcium/Folic Acid/Minerals Tab) 1 tab PO DAILY [facility] Last Admin: 10/22/20 09:02 Dose: 1 tab Documented by: Pantoprazole Sodium (Pantoprazole 40 Mg Tab.Cr) 40 mg PO 0600 [facility] Last Admin: 10/22/20 05:22 Dose: 40 mg Documented by: Sertraline HCl (Sertraline 100 Mg Tab) 100 mg PO DAILY [facility] Last Admin: 10/22/20 09:01 Dose: 100 mg Documented by: Sodium Chloride (Sodium Chloride 0.9% 10 Ml Syringe) 10 ml FLUSH ASDIRECTED PRN PRN Reason: Keep Vein Open Last Admin: 10/21/20 18:05 Dose: 10 ml Documented by: Thiamine HCl (Thiamine 100 Mg Tab) 100 mg PO BEDTIME [facility] Last Admin: 10/21/20 20:36 Dose: 100 mg Documented by: Discontinued Medications Albuterol/Ipratropium (Albuterol/Ipratropium 3.0-0.5 Mg/3 Ml Neb Soln) 3 ml NEB Q2H PRN PRN Reason: Shortness of Breath Azithromycin (Azithromycin 500 Mg Tab) 500 mg PO Q24H [facility] Stop: 10/19/20 23:59 Last Admin: 10/19/20 18:07 Dose: 500 mg Documented by: Ceftriaxone Sodium (Ceftriaxone 1 Gm Vial) 1 gm IVPUSH Q24H [facility] Stop: 10/21/20 21:00 Last Admin: 10/21/20 18:05 Dose: 1 gm Documented by: Potassium Chloride/Sodium Chloride (Normal Saline With 20 Meq Kcl) 1,000 mls @ 125 mls/hr IV ASDIRECTED [facility] Last Admin: 10/17/20 09:58 Dose: 125 mls/hr Documented by: Potassium Chloride/Sodium Chloride (Normal Saline With 20 Meq Kcl) 1,000 mls @ 125 mls/hr IV Q8H [facility] Last Admin: 10/18/20 02:01 Dose: 125 mls/hr Documented by: Ceftriaxone Sodium 1 gm/ (Sodium Chloride) 50 mls @ 200 mls/hr IV Q24H [facility] Last Admin: 10/17/20 18:15 Dose: 200 mls/hr Documented by: Lidocaine HCl (Lidocaine 2% Hcl 6 Ml Jel.Pf.Juanjo) 6 ml .XX ONETIME ONE Stop: 10/17/20 11:15 Last Admin: 10/17/20 11:36 Dose: 6 ml Documented by: Lorazepam (Lorazepam 2 Mg/Ml Sdv) 0 mg IV ASDIRECTED [facility]; Protocol - Exam Lungs: Clear to Auscultation, Normal Respiratory Effort, Wheezing. No: Crackles Cardiovascular: Regular Rate, Regular Rhythm GI/Abdominal Exam: Normal Bowel Sounds, Soft, Non-Tender, No Distention Extremities: No Pedal Edema - Patient Data Result Diagrams: 10/21/20 06:30 10/21/20 06:30 Sepsis Event Note - Evaluation Sepsis Screening Result: No Definite Risk - Focused Exam Vital Signs: Vital Signs Temp Pulse Pulse Resp BP BP Pulse Ox 10/22/20 14:00 71 10/22/20 10:00 94 L 10/22/20 08:57 86 99/60 10/22/20 08:56 99/60 10/22/20 08:00 98.4 F 82 18 99/60 94 L 10/22/20 05:15 98.1 F 70 20 137/84 92 L - Problem List & Annotations (1) Alcoholism SNOMED Code(s): 3169422 Code(s): F10.20 - ALCOHOL DEPENDENCE, UNCOMPLICATED Status: Acute Current Visit: Yes (2) Malnutrition compromising bodily function SNOMED Code(s): 1161102 Code(s): E46 - UNSPECIFIED PROTEIN-CALORIE MALNUTRITION Status: Acute Current Visit: Yes (3) Palliative care encounter SNOMED Code(s): 438856783, 550017420 Code(s): Z51.5 - ENCOUNTER FOR PALLIATIVE CARE Status: Chronic Current Visit: Yes (4) Weakness SNOMED Code(s): 74282246 Code(s): R53.1 - WEAKNESS Status: Acute Current Visit: Yes (5) COPD (chronic obstructive pulmonary disease) SNOMED Code(s): 47151292 Code(s): J44.9 - CHRONIC OBSTRUCTIVE PULMONARY DISEASE, UNSPECIFIED Status: Chronic Current Visit: Yes (6) Essential hypertension SNOMED Code(s): 33088369 Code(s): I10 - ESSENTIAL (PRIMARY) HYPERTENSION Status: Chronic Current Visit: Yes (7) GERD (gastroesophageal reflux disease) SNOMED Code(s): 184881948 Code(s): K21.9 - GASTRO-ESOPHAGEAL REFLUX DISEASE WITHOUT ESOPHAGITIS Status: Chronic Current Visit: Yes (8) History of stroke SNOMED Code(s): 982592647 Code(s): Z86.73 - PRSNL HX OF TIA (TIA), AND CEREB INFRC W/O RESID DEFICITS Status: Chronic Current Visit: Yes (9) Valvular heart disease Status: Chronic Current Visit: Yes (10) Pneumonia SNOMED Code(s): 612083085 Code(s): J18.9 - PNEUMONIA, UNSPECIFIED ORGANISM Status: Resolved Current Visit: Yes Qualifiers: Laterality: right Lung location: lower lobe of lung - Problem List Review Problem List Initiated/Reviewed/Updated: Yes - My Orders Last 24 Hours: My Active Orders 10/22/20 09:48 Albuterol/Ipratropium [DuoNeb 3.0-0.5 MG/3 ML] 3 ml NEB Q4H PRN 10/24/20 05:00 CORONAVIRUS COVID-19 [facility] [[facility]] Routine - Plan Plan:: 1. RLL pneumonia: Rocephin 5 day course completed. Labs have corrected. Continue incentive spirometry q1h while awake. 2. Weakness: OT/PT continue strengthening & ADLs. 3. DVT prophylaxis: Will use SCDs and frequent ambulation. 4. Disposition: Transferred to skilled nursing on 08/24/2020 at 1030am. Will have Covid test at 5 am on Saturday prior to discharge, it was negative on admission. He will not require Mantoux test prior to going to [facility].
[2020-10-22] MEDS: Thiamine 100 MG Tab PO SCH (20:28)
[2020-10-23] MEDS: Pantoprazole 40 MG Tab.CR PO SCH (05:27)
--- NOTE | 2020-10-23 08:51 | PCM.PN ---
- General Info Date of Service: 10/23/20 Subjective Update: Vance states doing well, no abdominal pain, nausea/vomiting. Have more frequent stools, completed Rocephin on Saturday. Does not take Pantoprazole at home. He is also refusing SCDs. Ambulates with 2 person assists. States he was in [place] with PT or OT he thinks. - Patient Data Vitals - Most Recent: Last Vital Signs Temp 98 F 10/23/20 01:00 Pulse 71 10/23/20 01:00 Resp 20 10/23/20 01:00 BP 129/71 10/23/20 01:00 Pulse Ox 92 L 10/23/20 01:00 Weight - Most Recent: 177 lb 5 oz Med Orders - Current: Current Medications Albuterol/Ipratropium (Albuterol/Ipratropium 3.0-0.5 Mg/3 Ml Neb Soln) 3 ml NEB Q4H PRN PRN Reason: Shortness of Breath Last Admin: 10/22/20 13:17 Dose: 3 ml Documented by: Bupropion HCl (Bupropion 150 Mg Tab.Er) 150 mg PO DAILY [facility] Last Admin: 10/22/20 09:01 Dose: 150 mg Documented by: Carvedilol (Carvedilol 12.5 Mg Tab) 12.5 mg PO BID [facility] Last Admin: 10/22/20 20:28 Dose: 12.5 mg Documented by: Hydrochlorothiazide (Hydrochlorothiazide 12.5 Mg Cap) 12.5 mg PO DAILY [facility] Last Admin: 10/22/20 09:00 Dose: 12.5 mg Documented by: Lorazepam (Lorazepam 1 Mg Tab) 0 mg PO ASDIRECTED [facility]; Protocol Losartan Potassium (Losartan 100 Mg Tab) 100 mg PO DAILY [facility] Last Admin: 10/22/20 08:56 Dose: 100 mg Documented by: Multivit/Ca Carb/B Cmplx/FA/Prenat (Folic Acid/Vitamin B Complex With C Cap) 1 cap PO DAILY [facility] Last Admin: 10/22/20 08:59 Dose: 1 cap Documented by: Multivitamins/Minerals (Multivitamins With Iron/Calcium/Folic Acid/Minerals Tab) 1 tab PO DAILY [facility] Last Admin: 10/22/20 09:02 Dose: 1 tab Documented by: Sertraline HCl (Sertraline 100 Mg Tab) 100 mg PO DAILY [facility] Last Admin: 10/22/20 09:01 Dose: 100 mg Documented by: Thiamine HCl (Thiamine 100 Mg Tab) 100 mg PO BEDTIME [facility] Last Admin: 10/22/20 20:28 Dose: 100 mg Documented by: Discontinued Medications Albuterol/Ipratropium (Albuterol/Ipratropium 3.0-0.5 Mg/3 Ml Neb Soln) 3 ml NEB Q2H PRN PRN Reason: Shortness of Breath Azithromycin (Azithromycin 500 Mg Tab) 500 mg PO Q24H [facility] Stop: 10/19/20 23:59 Last Admin: 10/19/20 18:07 Dose: 500 mg Documented by: Ceftriaxone Sodium (Ceftriaxone 1 Gm Vial) 1 gm IVPUSH Q24H [facility] Stop: 10/21/20 21:00 Last Admin: 10/21/20 18:05 Dose: 1 gm Documented by: Potassium Chloride/Sodium Chloride (Normal Saline With 20 Meq Kcl) 1,000 mls @ 125 mls/hr IV ASDIRECTED [facility] Last Admin: 10/17/20 09:58 Dose: 125 mls/hr Documented by: Potassium Chloride/Sodium Chloride (Normal Saline With 20 Meq Kcl) 1,000 mls @ 125 mls/hr IV Q8H [facility] Last Admin: 10/18/20 02:01 Dose: 125 mls/hr Documented by: Ceftriaxone Sodium 1 gm/ (Sodium Chloride) 50 mls @ 200 mls/hr IV Q24H [facility] Last Admin: 10/17/20 18:15 Dose: 200 mls/hr Documented by: Lidocaine HCl (Lidocaine 2% Hcl 6 Ml Jel.Pf.Juanjo) 6 ml .XX ONETIME ONE Stop: 10/17/20 11:15 Last Admin: 10/17/20 11:36 Dose: 6 ml Documented by: Lorazepam (Lorazepam 2 Mg/Ml Sdv) 0 mg IV ASDIRECTED [facility]; Protocol Pantoprazole Sodium (Pantoprazole 40 Mg Tab.Cr) 40 mg PO 0600 [facility] Last Admin: 10/23/20 05:27 Dose: 40 mg Documented by: Sodium Chloride (Sodium Chloride 0.9% 10 Ml Syringe) 10 ml FLUSH ASDIRECTED PRN PRN Reason: Keep Vein Open Last Admin: 10/21/20 18:05 Dose: 10 ml Documented by: - Exam Quality Assessment: No: Supplemental Oxygen General: Alert, Oriented, Cooperative, No Acute Distress Lungs: Clear to Auscultation, Normal Respiratory Effort, Wheezing (RUL) Cardiovascular: Regular Rate, Regular Rhythm GI/Abdominal Exam: Normal Bowel Sounds, Soft, Non-Tender, No Distention Extremities: No Pedal Edema - Patient Data Result Diagrams: 10/21/20 06:30 10/21/20 06:30 Sepsis Event Note - Evaluation Sepsis Screening Result: No Definite Risk - Focused Exam Vital Signs: Vital Signs Temp Pulse Resp BP Pulse Ox 10/23/20 01:00 98 F 71 20 129/71 92 L - Problem List & Annotations (1) Alcoholism SNOMED Code(s): 8867525 Code(s): F10.20 - ALCOHOL DEPENDENCE, UNCOMPLICATED Status: Acute Current Visit: Yes (2) Malnutrition compromising bodily function SNOMED Code(s): 5541632 Code(s): E46 - UNSPECIFIED PROTEIN-CALORIE MALNUTRITION Status: Acute Current Visit: Yes (3) Palliative care encounter SNOMED Code(s): 821870271, 982610130 Code(s): Z51.5 - ENCOUNTER FOR PALLIATIVE CARE Status: Chronic Current Visit: Yes (4) Weakness SNOMED Code(s): 99314253 Code(s): R53.1 - WEAKNESS Status: Acute Current Visit: Yes (5) COPD (chronic obstructive pulmonary disease) SNOMED Code(s): 33217916 Code(s): J44.9 - CHRONIC OBSTRUCTIVE PULMONARY DISEASE, UNSPECIFIED Status: Chronic Current Visit: Yes (6) Essential hypertension SNOMED Code(s): 67737145 Code(s): I10 - ESSENTIAL (PRIMARY) HYPERTENSION Status: Chronic Current Visit: Yes (7) GERD (gastroesophageal reflux disease) SNOMED Code(s): 539910907 Code(s): K21.9 - GASTRO-ESOPHAGEAL REFLUX DISEASE WITHOUT ESOPHAGITIS Status: Chronic Current Visit: Yes (8) History of stroke SNOMED Code(s): 928334055 Code(s): Z86.73 - PRSNL HX OF TIA (TIA), AND CEREB INFRC W/O RESID DEFICITS Status: Chronic Current Visit: Yes (9) Valvular heart disease Status: Chronic Current Visit: Yes (10) Pneumonia SNOMED Code(s): 146497466 Code(s): J18.9 - PNEUMONIA, UNSPECIFIED ORGANISM Status: Resolved Current Visit: Yes Qualifiers: Laterality: right Lung location: lower lobe of lung - Problem List Review Problem List Initiated/Reviewed/Updated: Yes - My Orders Last 24 Hours: My Active Orders 10/22/20 09:48 Albuterol/Ipratropium [DuoNeb 3.0-0.5 MG/3 ML] 3 ml NEB Q4H PRN 10/23/20 08:32 Antiembolic Hose [OM.PC] Routine 10/23/20 08:33 Discontinue Saline Lock [Peripheral IV Discontinue] [OM.PC] Routine 10/23/20 09:00 Saccharomyces Boulardii [Florastor] 250 mg PO BID 10/24/20 05:00 CORONAVIRUS COVID-19 [facility] [[facility]] Routine - Plan Plan:: 1. Weakness: OT/PT on discharge at [facility]. 2. DVT prophylaxis: Discontinue SCDs(fall risk), change to TEDs Hose and ambulation with nursing. 3. Disposition: Transferred to shelter on 08/24/2020 at 1030am. Will have Covid test at 5 am on Saturday prior to discharge, it was negative on admission. He will not require Mantoux test prior to going to [facility].
[2020-10-23] MEDS: buPROPion 150 MG Tab.ER PO SCH (09:36)
[2020-10-23] MEDS: Carvedilol 12.5 MG Tab PO SCH ×2 (09:36→21:05)
[2020-10-23] MEDS: Losartan 100 MG Tab PO SCH (09:36)
[2020-10-23] MEDS: Folic Acid/Vitamin B Complex With C Cap PO SCH (09:37)
[2020-10-23] MEDS: Sertraline 100 MG Tab PO SCH (09:37)
[2020-10-23] MEDS: Multivitamins with Iron/Calcium/Folic Acid/Minerals Tab PO SCH (09:38)
[2020-10-23] MEDS: Hydrochlorothiazide 12.5 MG Cap PO SCH (09:38)
[2020-10-23] MEDS: Saccharomyces Boulardii (Probiotic) 250 MG Cap PO SCH ×2 (09:43→21:39)
[2020-10-23] MEDS: Thiamine 100 MG Tab PO SCH (21:06)
[2020-10-24] MEDS: Carvedilol 12.5 MG Tab PO SCH (08:13)
[2020-10-24] MEDS: Losartan 100 MG Tab PO SCH (08:14)
[2020-10-24] MEDS: Folic Acid/Vitamin B Complex With C Cap PO SCH (08:14)
[2020-10-24] MEDS: buPROPion 150 MG Tab.ER PO SCH (08:14)
[2020-10-24] MEDS: Hydrochlorothiazide 12.5 MG Cap PO SCH (08:15)
[2020-10-24] MEDS: Sertraline 100 MG Tab PO SCH (08:15)
[2020-10-24] MEDS: Multivitamins with Iron/Calcium/Folic Acid/Minerals Tab PO SCH (08:16)
[2020-10-24] MEDS ORDERED: Loperamide 2 MG Cap PO PRN (08:49)
[2020-10-24] MEDS: Saccharomyces Boulardii (Probiotic) 250 MG Cap PO SCH (09:07)
--- NOTE | 2020-10-24 10:06 | PCM.DCSUM1 ---
Discharge Summary - Hospital Course HPI Initial Comments: Patient presented to the ED because of frequent falls and weakness. He started falling 2 weeks ago, the most recent one was 4 days ago. He said his legs just gave out due to his previous stroke and fell on his right side. He has abrasions on the right elbow and complains of right hip pain from the fall this Saturday. He also has a dry cough denies having any dyspnea,fever,chills. There is no N/V/D. He drinks 6 packs of beer daily. Diagnosis: Stroke: No - Discharge Data Discharge Date: 10/24/20 ([facility]) Discharge Disposition: DC/Tfer to SNF 03 Condition: Good - Referral to Home Health Date of Face to Face Encounter: 10/24/20 Reason for Homebound Status: [facility] admission Primary Care Physician: Jose Rivers MD Skilled Need: intermediate, PT/OT-cognitive - Discharge Diagnosis/Problem(s) (1) Alcoholism SNOMED Code(s): 6572608 ICD Code: F10.20 - ALCOHOL DEPENDENCE, UNCOMPLICATED Status: Acute Current Visit: Yes (2) Malnutrition compromising bodily function SNOMED Code(s): 6821735 ICD Code: E46 - UNSPECIFIED PROTEIN-CALORIE MALNUTRITION Status: Acute Current Visit: Yes (3) Palliative care encounter SNOMED Code(s): 978340189, 390749720 ICD Code: Z51.5 - ENCOUNTER FOR PALLIATIVE CARE Status: Chronic Current Visit: Yes (4) Weakness SNOMED Code(s): 04430840 ICD Code: R53.1 - WEAKNESS Status: Acute Current Visit: Yes (5) COPD (chronic obstructive pulmonary disease) SNOMED Code(s): 04437589 ICD Code: J44.9 - CHRONIC OBSTRUCTIVE PULMONARY DISEASE, UNSPECIFIED Status: Chronic Current Visit: Yes (6) Essential hypertension SNOMED Code(s): 49845935 ICD Code: I10 - ESSENTIAL (PRIMARY) HYPERTENSION Status: Chronic Current Visit: Yes (7) GERD (gastroesophageal reflux disease) SNOMED Code(s): 470666322 ICD Code: K21.9 - GASTRO-ESOPHAGEAL REFLUX DISEASE WITHOUT ESOPHAGITIS Status: Chronic Current Visit: Yes (8) History of stroke SNOMED Code(s): 285023017 ICD Code: Z86.73 - PRSNL HX OF TIA (TIA), AND CEREB INFRC W/O RESID DEFICITS Status: Chronic Current Visit: Yes (9) Valvular heart disease Status: Chronic Current Visit: Yes (10) Pneumonia SNOMED Code(s): 883692114 ICD Code: J18.9 - PNEUMONIA, UNSPECIFIED ORGANISM Status: Resolved Current Visit: Yes Qualifiers: Laterality: right Lung location: lower lobe of lung - Patient Summary/Data Consults: Consultations 10/17/20 11:14 OT Evaluation and Treatment [CONS] Routine Please Evaluate and Treat. OT Reason for Consult: ADL's This query below is only for informational purposes and is not editable. Admission Diagnosis/Problem: Weakness PT Evaluation and Treatment [CONS] Routine Please Evaluate and Treat. PT Reason for Consult: Ambulation This query below is only for informational purposes and is not editable. Admission Diagnosis/Problem: Weakness 10/18/20 08:25 Consult to Speech Language Pathology [POLICY SPECIALIST Evaluation and Treatment] [CONS] Routine Please Evaluate and Treat POLICY SPECIALIST Reason for Consult: Swallow This query below is only for informational purposes and is not editable. Admission Diagnosis/Problem: Weakness Hospital Course: Jose was admitted for RLL pneumonia, alcoholism, hyponatremia, hypokalemia, recurrent falls. He received 5 days of Rocephin. WBC remained normal. Sodium went from 124 to 139, Potassium 3.4 to 4.1, Creatinine remained stable 0.7 to 0.9. On admission EtOH <0.03. Covid was negative on admit and today. He had PT/OT evaluate for recurrent falls, recommended NH placement for further therapy. He had CIWAA protocol during his initial days of admission, scores were low so was discontinue on Saturday 10/21. He did NOT receive any doses of Ativan during hospitalization for withdrawal symptoms. Mini mental exam by speech therapy was 18/30, does not have consistent care at home. He had some pudding/loose stools over the weekend, on probiotics. Discontinued Pantoprazole as diarrhea can be side effect. His significant other stated today that he takes Loperamide a couple times a week for loose stools so ordered this today and will go to [facility] with script as well. Discharge today at 1030. - Patient Instructions Diet: Regular Diet as Tolerated Activity: As Tolerated Other/Special Instructions: Admit to [facility] today for long-term, PT/OT - Discharge Plan *PRESCRIPTION DRUG MONITORING PROGRAM REVIEWED*: Not Applicable *COPY OF PRESCRIPTION DRUG MONITORING REPORT IN PATIENT FLAVIO: Not Applicable Prescriptions/Med Rec: Albuterol/Ipratropium [DuoNeb 3.0-0.5 MG/3 ML] 3 ml NEB Q4H PRN #1 box PRN Reason: Shortness Of Breath Saccharomyces Boulardii [Florastor] 250 mg PO BID 7 Days #14 cap Loperamide [Imodium] 2 mg PO Q6H PRN #14 cap PRN Reason: Diarrhea Thiamine [Vitamin B-1] 100 mg PO BEDTIME 14 Days #14 tablet Home Medications: Home Meds Cholecalciferol (Vitamin D3) [Vitamin D3] 100 mcg PO DAILY 10/17/20 [History] Cyanocobalamin (Vitamin B12) [Vitamin B12] 1,000 mcg PO DAILY 10/17/20 [History] Folic Acid 1 mg PO DAILY 10/17/20 [History] Losartan [Cozaar] 100 mg PO DAILY 10/17/20 [History] Multivit-Min/FA/Lycopen/Lutein [Centrum Silver Tablet] 1 tab PO DAILY 10/17/20 [History] Sertraline [Zoloft] 100 mg PO DAILY 10/17/20 [History] Triamcinolone Acetonide [Triamcinolone Acetonide 0.1% Crm] 1 applic TOP TID 10/17/20 [History] buPROPion [buPROPion XL] 150 mg PO DAILY 10/17/20 [History] carvediloL [Carvedilol] 12.5 mg PO BID 10/17/20 [History] hydroCHLOROthiazide [Hydrochlorothiazide] 12.5 mg PO DAILY 10/17/20 [History] Albuterol/Ipratropium [DuoNeb 3.0-0.5 MG/3 ML] 3 ml NEB Q4H PRN #1 box 10/24/20 [Rx] Loperamide [Imodium] 2 mg PO Q6H PRN #14 cap 10/24/20 [Rx] Saccharomyces Boulardii [Florastor] 250 mg PO BID 7 Days #14 cap 10/24/20 [Rx] Thiamine [Vitamin B-1] 100 mg PO BEDTIME 14 Days #14 tablet 10/24/20 [Rx] Oxygen Therapy Mode: Room Air Forms: ED Department Discharge Referrals: Jose Rivers MD [Primary Care Provider] - - Discharge Summary/Plan Comment DC Time >30 min.: No - General Info Date of Service: 10/24/20 Subjective Update: He states he is feeling good, no shortness of breath. Some episodes of diarrhea, significant other states he takes Loperamide as needed at home for diarrhea. Does not take on a daily basis but maybe a few times a week. - Patient Data Vitals - Most Recent: Last Vital Signs Temp 97.9 F 10/24/20 08:00 Pulse 72 10/24/20 08:13 Resp 19 10/24/20 08:00 BP 148/85 H 10/24/20 08:14 Pulse Ox 91 L 10/24/20 08:00 Weight - Most Recent: 177 lb 5 oz Lab Results - Last 24 hrs: Laboratory Results - last 24 hr 10/24/20 Range/Units 02:00 SARS-CoV-2 RNA (TIMO) Negative (NEGATIVE) Med Orders - Current: Current Medications Albuterol/Ipratropium (Albuterol/Ipratropium 3.0-0.5 Mg/3 Ml Neb Soln) 3 ml NEB Q4H PRN PRN Reason: Shortness of Breath Last Admin: 10/22/20 13:17 Dose: 3 ml Documented by: Bupropion HCl (Bupropion 150 Mg Tab.Er) 150 mg PO DAILY [facility] Last Admin: 10/24/20 08:14 Dose: 150 mg Documented by: Carvedilol (Carvedilol 12.5 Mg Tab) 12.5 mg PO BID [facility] Last Admin: 10/24/20 08:13 Dose: 12.5 mg Documented by: Hydrochlorothiazide (Hydrochlorothiazide 12.5 Mg Cap) 12.5 mg PO DAILY [facility] Last Admin: 10/24/20 08:15 Dose: 12.5 mg Documented by: Loperamide HCl (Loperamide 2 Mg Cap) 2 mg PO Q6H PRN PRN Reason: Diarrhea Lorazepam (Lorazepam 1 Mg Tab) 0 mg PO ASDIRECTED [facility]; Protocol Losartan Potassium (Losartan 100 Mg Tab) 100 mg PO DAILY [facility] Last Admin: 10/24/20 08:14 Dose: 100 mg Documented by: Multivit/Ca Carb/B Cmplx/FA/Prenat (Folic Acid/Vitamin B Complex With C Cap) 1 cap PO DAILY [facility] Last Admin: 10/24/20 08:14 Dose: 1 cap Documented by: Multivitamins/Minerals (Multivitamins With Iron/Calcium/Folic Acid/Minerals Tab) 1 tab PO DAILY [facility] Last Admin: 10/24/20 08:16 Dose: 1 tab Documented by: Saccharomyces Boulardii (Saccharomyces Boulardii (Probiotic) 250 Mg Cap) 250 mg PO BID NAOMI Stop: 10/25/20 09:01 Last Admin: 10/24/20 09:07 Dose: 250 mg Documented by: Sertraline HCl (Sertraline 100 Mg Tab) 100 mg PO DAILY [facility] Last Admin: 10/24/20 08:15 Dose: 100 mg Documented by: Thiamine HCl (Thiamine 100 Mg Tab) 100 mg PO BEDTIME [facility] Last Admin: 10/23/20 21:06 Dose: 100 mg Documented by: Discontinued Medications Albuterol/Ipratropium (Albuterol/Ipratropium 3.0-0.5 Mg/3 Ml Neb Soln) 3 ml NEB Q2H PRN PRN Reason: Shortness of Breath Azithromycin (Azithromycin 500 Mg Tab) 500 mg PO Q24H [facility] Stop: 10/19/20 23:59 Last Admin: 10/19/20 18:07 Dose: 500 mg Documented by: Ceftriaxone Sodium (Ceftriaxone 1 Gm Vial) 1 gm IVPUSH Q24H [facility] Stop: 10/21/20 21:00 Last Admin: 10/21/20 18:05 Dose: 1 gm Documented by: Potassium Chloride/Sodium Chloride (Normal Saline With 20 Meq Kcl) 1,000 mls @ 125 mls/hr IV ASDIRECTED [facility] Last Admin: 10/17/20 09:58 Dose: 125 mls/hr Documented by: Potassium Chloride/Sodium Chloride (Normal Saline With 20 Meq Kcl) 1,000 mls @ 125 mls/hr IV Q8H [facility] Last Admin: 10/18/20 02:01 Dose: 125 mls/hr Documented by: Ceftriaxone Sodium 1 gm/ (Sodium Chloride) 50 mls @ 200 mls/hr IV Q24H [facility] Last Admin: 10/17/20 18:15 Dose: 200 mls/hr Documented by: Lidocaine HCl (Lidocaine 2% Hcl 6 Ml Jel.Pf.Juanjo) 6 ml .XX ONETIME ONE Stop: 10/17/20 11:15 Last Admin: 10/17/20 11:36 Dose: 6 ml Documented by: Lorazepam (Lorazepam 2 Mg/Ml Sdv) 0 mg IV ASDIRECTED NAOMI; Protocol Pantoprazole Sodium (Pantoprazole 40 Mg Tab.Cr) 40 mg PO 0600 [facility]OMI Last Admin: 10/23/20 05:27 Dose: 40 mg Documented by: Sodium Chloride (Sodium Chloride 0.9% 10 Ml Syringe) 10 ml FLUSH ASDIRECTED PRN PRN Reason: Keep Vein Open Last Admin: 10/21/20 18:05 Dose: 10 ml Documented by: - Exam General: Reports: Alert, Oriented (person), Cooperative, No Acute Distress Lungs: Reports: Clear to Auscultation, Normal Respiratory Effort, Wheezing (RUL) Cardiovascular: Reports: Regular Rate, Regular Rhythm GI/Abdominal Exam: Normal Bowel Sounds, Soft, Non-Tender, No Distention Extremities: No Pedal Edema
== END 2020-10-24 10:30 | DRG 896 ==
LOC: FB.ED 06:44 → FB.MS 10:31 → INTOOBSV 10:31 → UNDOADMOB 10:31 → OBSVTOIN 10:31
PROVIDERS: ADMIT Student in an Organized Health Care Education/Training Program; ATTEND Family Medicine
DX: R53.1 Weakness (principal); E78.6 Lipoprotein deficiency; F10.20 Alcohol dependence, uncomplicated; J18.9 Pneumonia, unspecified organism; E46 Unspecified protein-calorie malnutrition; E87.1 Hypo-osmolality and hyponatremia; I69.30 Unspecified sequelae of cerebral infarction; Z51.5 Encounter for palliative care; J44.9 Chronic obstructive pulmonary disease, unspecified; M25.551 Pain in right hip; I10 Essential (primary) hypertension; K21.9 Gastro-esophageal reflux disease without esophagitis; E87.6 Hypokalemia; R29.6 Repeated falls; Z20.822 Contact with and (suspected) exposure to COVID-19; R32 Unspecified urinary incontinence; F32.9 Major depressive disorder, single episode, unspecified; F17.210 Nicotine dependence, cigarettes, uncomplicated; R74.01 Elevation of levels of liver transaminase levels; E88.09 Other disorders of plasma-protein metabolism, not elsewhere classified; Y90.1 Blood alcohol level of 20-39 mg/100 ml; Z79.899 Other long term (current) drug therapy; Z86.79 Personal history of other diseases of the circulatory system; Z86.73 Personal history of transient ischemic attack (TIA), and cerebral infarction without residual deficits
CPT/HCPCS: 36415; 70450; 71045; 73080-RT; 73521; 74230; 80053; 80307; 82550; 83735; 84484; 85025; 85610; 92611-GN; 93005; 94150; 94640; 97116-GP; 97161-GP; 97165-GO; 97530-GO; 99285; 99285-25; A9270-GY; J0696; J3480; J7620-GY; U0002

== ENCOUNTER 2022-04-29 20:49 | Emergency (ER) | payer MEDICARE, MEDICAID ==
[2022-04-29] MEDS: Sodium Chloride 0.9% 10 ML Syringe FLUSH PRN (20:55)
[2022-04-29] MEDS: Ondansetron 4 MG/2 ML SDV IVPUSH ONE (21:10)
[2022-04-29 21:28] LABS: ESTIMATED GFR 96 mL/min (>60)
[2022-04-29] MEDS: Acetaminophen 500 MG Tab PO ONE (21:30)
[2022-04-29 22:20] LABS: CORONAVIRUS COVID-19 NAA POSITIVE (NEGATIVE)
[2022-04-30] MEDS: Ondansetron 4 MG/2 ML SDV ONE (00:19)
== END 2022-04-29 22:50 | disposition home or self-care (01) ==
LOC: FB.ED 20:49
DX: U07.1 COVID-19 (principal); E87.1 Hypo-osmolality and hyponatremia; I10 Essential (primary) hypertension; Z86.73 Personal history of transient ischemic attack (TIA), and cerebral infarction without residual deficits; Z79.899 Other long term (current) drug therapy
CPT/HCPCS: 0240U; 36415; 70450; 71045; 80053; 84484; 85025; 85610; 85730; 93005; 96374; 99284-25; A9270-GY; J2405; J3490

== ENCOUNTER 2024-09-05 09:00 | Emergency (ER) | payer MEDICAID, MEDICARE ==
[2024-09-05 09:35] LABS: HEMATOCRIT 38.8 % (38.3-50.1); HEMOGLOBIN 13.5 g/dL (12.9-17.7); MEAN CORPUSCULAR HEMOGLOBIN 30.7 pg (27.0-33.3); MEAN CORPUSCULAR HGB CONC 34.9 g/dL (28.7-35.3); MEAN CORPUSCULAR VOLUME 87.8 fL (80.8-98.7); MEAN PLATELET VOLUME 8.7 fL (6.7-11.0); PLATELET COUNT,PLT 200 x10(3)uL (117-477); RED BLOOD CELL COUNT 4.42 x10(6)uL (3.90-5.90); RED CELL DISTRIBUTION WIDTH 12.3 % (12.4-15.0); WHITE BLOOD CELL COUNT,WBC 10.7 x10-3/uL (3.2-10.1)
[2024-09-05 09:38] LABS: BLOOD UREA NITROGEN,BUN 9 mg/dL (7-18); CALCIUM 8.8 mg/dL (8.6-10.2); CARBON DIOXIDE,CO2 27 mmol/L (21-32); CHLORIDE,CL 92 mmol/L (100-110); CREATININE 0.9 mg/dL (0.70-1.30); ESTIMATED GFR 91 mL/min (>60); GLUCOSE RANDOM 128 mg/dL (80-116); POTASSIUM,K 4.3 mmol/L (3.5-5.3); SODIUM,NA 125 mmol/L (135-145)
[2024-09-05 09:44] LABS: A/G RATIO 1.1; ALANINE AMINOTRANSFERASE,ALT 24 U/L (12-36); ALBUMIN 3.6 g/dL (3.2-4.6); ALKALINE PHOSPHATASE 107 IU/L (56-112); ASPARTATE AMNIOTRANSFERASE,AST 16 IU/L (5-25); BILIRUBIN TOTAL 0.6 mg/dL (0.1-1.3)
[2024-09-05 09:47] LABS: LYMPHOCYTES PERCENT MAN 9 % (13-37); MONOCYTES PERCENT MAN 6 % (4-12); SEG NEUTROPHILS PERCENT MAN 85 % (46-82)
[2024-09-05 11:04] LABS: BILIRUBIN,URINE NEGATIVE (NEGATIVE); GLUCOSE,URINE NORMAL (NORMAL); KETONES,URINE NEGATIVE (NEGATIVE); LEUKOCYTE ESTERASE,URINE NEGATIVE (NEGATIVE); NITRITE,URINE NEGATIVE (NEGATIVE); OCCULT BLOOD,URINE NEGATIVE (NEGATIVE); PROTEIN,URINE NEGATIVE (NEGATIVE); UROBILINOGEN,URINE NORMAL (NEGATIVE)
[2024-09-05 11:05] LABS: APPEARANCE,URINE CLEAR (CLEAR); COLOR,URINE YELLOW (YELLOW)
== END 2024-09-05 11:38 | disposition home or self-care (01) ==
LOC: FB.ED 09:00
DX: R33.9 Retention of urine, unspecified (principal); I10 Essential (primary) hypertension; Z79.899 Other long term (current) drug therapy; Z86.16 Personal history of COVID-19
CPT/HCPCS: 36415; 80053; 81003; 85025; 99283